=== PATIENT | female | born 1960 | race Caucasian/White ===

== ENCOUNTER → 2016-12-24 | Outpatient (CLI) | payer OTHER ==
--- NOTE | 2016-12-26 14:08 | MAMMOGRAPHY REPORT ---
BILATERAL DIGITAL SCREENING MAMMOGRAM TOMOSYNTHESIS WITH CAD: 12/24/2016 CLINICAL HISTORY: Routine screening examination. TECHNIQUE: Breast tomosynthesis in addition to standard 2D mammography was performed. Current study was also evaluated with a Computer Aided Detection (CAD) system. COMPARISON: Comparison is made to exams dated: 06/07/2014 mammogram, 12/31/2011 mammogram, 12/26/2009 m ammogram, 12/24/2014 mammogram - [facility], and 01/12/2008. BREAST COMPOSITION: The tissue of both breasts is heterogeneously dense, which may obscure small ma sses. FINDINGS: The parenchymal pattern is unchanged. No developing mass, architectural distortion or clu ster of suspicious microcalcifications is seen in either breast. IMPRESSION: ACR BI-RADS CATEGORY 2: BENIGN There is no mammographic evidence of malignancy. A 1 year screening mammogram is recommended. The p atient will receive written notification of the results. Approximately 10% of breast cancers are not detected with mammography. A negative mammographic repor t should not delay biopsy if a clinically suggestive mass is present. Fatmata Chakraborty M.D. ay/:12/25/2016 21:39:45 Gantry Rigger: Yoko TAN(Daniel)(Freddy), [facility] letter sent: Normal 1/2 BI-RADS Code: ACR BI-RADS Category 2: Benign
== END | disposition home or self-care (01) ==
LOC: C.MAMM 09:35
PROVIDERS: ATTEND Internal Medicine Geriatric Medicine
DX: Z12.31 Encounter for screening mammogram for malignant neoplasm of breast (principal)

== ENCOUNTER → 2018-02-05 | Outpatient (CLI) | payer OTHER ==
--- NOTE | 2018-02-06 08:04 | MAMMOGRAPHY REPORT ---
BILATERAL DIGITAL SCREENING MAMMOGRAM TOMOSYNTHESIS WITH CAD: 02/05/2018 CLINICAL HISTORY: Routine screening. Patient has no complaints. TECHNIQUE: Breast tomosynthesis in addition to standard 2D mammography was performed. Current study was also evaluated with a Computer Aided Detection (CAD) system. COMPARISON: Comparison is made to exams dated: 12/24/2016 mammogram, 06/07/2014 mammogram, 12/31/2011 ma mmogram, 12/26/2009 mammogram - [facility], 01/12/2008, and 01/20/2006 mammogram - [facility]. BREAST COMPOSITION: The tissue of both breasts is heterogeneously dense, which may obscure small mas ses. FINDINGS: No suspicious masses, calcifications, or areas of architectural distortion are noted in ei ther breast. There has been no significant interval change compared to prior exams. Scattered bilate ral benign-appearing calcifications are not significantly changed. Asymmetry in the left inferior br east is stable compared to multiple prior exams. IMPRESSION: ACR BI-RADS CATEGORY 2: BENIGN There is no mammographic evidence of malignancy. A 1 year screening mammogram is recommended. The pa tient will receive written notification of the results. Approximately 10% of breast cancers are not detected with mammography. A negative mammographic report should not delay biopsy if a clinically suggestive mass is present. Sonia Pate M.D. ah/:02/05/2018 14:49:07 Field Marketing Specialist: Yoko LOVE)(Freddy), [facility] letter sent: Normal 1/2 BI-RADS Code: ACR BI-RADS Category 2: Benign
== END | disposition home or self-care (01) ==
LOC: C.MAMM 14:13
PROVIDERS: ATTEND Physician Assistant Medical
DX: Z12.31 Encounter for screening mammogram for malignant neoplasm of breast (principal)

== ENCOUNTER 2020-08-29 18:08 | Inpatient (IN) ==
[2020-08-29] MEDS ORDERED: ONDANSETRON INJ 2 MG/ML 2 ML VIAL IV STA (19:03)
[2020-08-29] MEDS ORDERED: SODIUM CHLORIDE 0.9% 1000ML 2,000 ML IV SCH (19:15)
[2020-08-29] MEDS ORDERED: INSULIN PROTOCOL GOAL RANGE ONE (19:36)
[2020-08-29] MEDS ORDERED: CALCIUM GLUCONATE 10% 1,000 MG in SODIUM CHLORIDE 0.9% 50 ML IV STA (19:37)
--- NOTE | 2020-08-29 19:37 | XRay Report ---
XR chest 1V portable CLINICAL HISTORY: weakness COMPARISON STUDY: No previous studies for comparison. FINDINGS: The cardiac and mediastinal contours are normal. There is no evidence of focal pulmonary co nsolidation. There is no evidence of failure. No pleural effusions are visualized.[ IMPRESSION: No active disease in the chest. ACT 112: Negative or not required by law. Electronically signed by: Crow Szymanski M.D. 08/29/2020 7:36 PM
[2020-08-29] MEDS ORDERED: NovoLIN-R INSULIN PER UNIT CHARGE IV STA (19:38)
[2020-08-29 19:42] LABS: Base Excess ABG -24.9 mEq/L (-9-1.8); HCO3 ABG 3 mmol/L (19-24); Oxygen Saturation ABG 98.4 % (90-95); PCO2 ABG 13 mmHg (35-46); PO2 ABG 140 mmHg (80-95)
[2020-08-29 19:44] LABS: iSTAT Blood Urea Nitrogen 37 mg/dl (7-18); iSTAT Carbon Dioxide < 5 mmol/L (24-31); iSTAT Chloride 92 mmol/L (101-112); iSTAT Creatinine 1.5 mg/dl (0.6-1.3); iSTAT Glucose > 700 mg/dl (70-99); iSTAT Hematocrit 41 % (37-47); iSTAT Hemoglobin 13.9 g/dl (12.0-16.0); iSTAT Ionized Calcium 1.21 mmol/l (1.12-1.32); iSTAT Potassium 6.6 mmol/L (3.3-5.0); iSTAT Sodium 116 mmol/L (135-144)
[2020-08-29 19:48] LABS: Allen Test Pos (Pos)
[2020-08-29 19:49] LABS: pH ABG 7.06 (7.35-7.45)
[2020-08-29] MEDS ORDERED: CARBOHYDRATES FOR HYPOGLYCEMIA PO PRN (19:50)
[2020-08-29] MEDS ORDERED: GLUCOSE 40% GEL 15 GM TUBE PO PRN (19:50)
[2020-08-29] MEDS ORDERED: DEXTROSE 50% 50 ML SYRINGE IV PRN (19:50)
[2020-08-29] MEDS ORDERED: GLUCOSE 10 TABS/TUBE PO PRN (19:50)
[2020-08-29] MEDS ORDERED: ED DKA INSULIN DRIP ONE (19:50)
[2020-08-29] MEDS ORDERED: GLUCAGON FOR INJ 1 MG VIAL SQ PRN (19:50)
[2020-08-29] MEDS ORDERED: SODIUM CHLORIDE 0.9% 1000ML 1,000 ML IV ONE (19:53)
[2020-08-29 19:55] LABS: Alanine Aminotransferase 32 U/L (12-78); Albumin Globulin Ratio 0.9 (0.9-2); Albumin Level 3.9 gm/dl (3.4-5.0); Aspartate Aminotransferase 24 U/L (15-37); BUN Creatinine Ratio 18.6 (10-20); Bilirubin,Total 0.6 mg/dl (0.2-1); Blood Urea Nitrogen 44 mg/dl (7-18); Calcium 9.2 mg/dl (8.5-10.1); Carbon Dioxide 5 mmol/L (21-32); Chloride 75 mmol/L (98-107); Est GFR (African American) 25.2; Est GFR (Non-African American) 21.7; Globulin 4.2 gm/dl (2.5-4.0); Glucose 1018 mg/dl (70-99); Magnesium 2.4 mg/dl (1.8-2.4); Potassium 6.8 mmol/L (3.5-5.1); Sodium 113 mmol/L (136-145); Total Protein 8.1 gm/dl (6.4-8.2)
[2020-08-29 19:58] LABS: Alkaline Phosphatase 106 U/L (45-117); Hematocrit (blood only) 46.8 % (37-47); Hemoglobin 14.6 g/dL (12.0-16.0); Mean Corpuscular Hemoglobin 31.3 pg (25-34); Mean Corpuscular Hgb Conc 31.2 g/dL (32-36); Mean Platelet Volume 10.6 fL (7.4-10.4); Platelet Count 461 K/uL (130-400); RDW Coefficient of Variation 12.8 % (11.5-14.5); RDW Standard Deviation 46.3 fL (36.4-46.3); Red Blood Count 4.66 M/uL (4.2-5.4); White Blood Count 36.81 K/uL (4.8-10.8)
[2020-08-29 20:01] LABS: ALC (manual) 0.88 K/uL (1.2-3.4); ANC (manual) 31.47 K/uL (1.4-6.5); Lymphocytes # (manual) 0.88 K/uL (1.2-3.4); Lymphocytes % (manual) 2.4 %; Metamyelocytes # (manual) 0.59 K/uL (0-0); Metamyelocytes % (manual) 1.6 %; Monocytes # (manual) 3.28 K/uL (0.11-0.59); Monocytes % (manual) 8.9 %; Myelocytes # (manual) 0.59 K/uL (0-0); Myelocytes % (manual) 1.6 %; Neutrophils # (manual) 31.47 K/uL (1.4-6.5); Neutrophils % (manual) 85.5 %
[2020-08-29] MEDS ORDERED: STAT IV STA (20:17)
[2020-08-29] MEDS ORDERED: SODIUM BICARBONATE 8.4% 150 MEQ in WATER, STERILE 1,000 ML IV SCH (20:30)
[2020-08-29 20:37] LABS: Beta-Hydroxybutyrate 155.58 mg/dl (0.2-2.81)
--- NOTE | 2020-08-29 20:40 | History & Physical Report ---
Date of Service August 29, 2020 Assessment & Plan (1) Admitted to intensive care unit: Patient is admitted to intensive care unit for treatment of DKA. Consult hog driver team placed. Present on Admission?: Yes (2) DKA (diabetic ketoacidoses): Continue with IV fluid rehydration. Continue insulin drip and bicarbonate drip per orders as noted. Follow laboratory serially. Present on Admission?: Yes (3) Hypothyroidism: Continue levothyroxine 125 mcg daily Present on Admission?: Yes (4) Acute kidney injury: Creatinine 2.34, with previous range 0.94-1.17. Rehydrating with IV fluids as noted. Follow BMP serially Present on Admission?: Yes (5) Metabolic acidosis: Treating DKA as noted above Present on Admission?: Yes (6) Hyperkalemia: Potassium 6.8 upon admission. Anticipate decreasing as patient has treatment of hyperglycemia with IV fluid hydration and insulin. Follow BMP serially. Patient did receive calcium gluconate IV while in the ED for cardioprotection Present on Admission?: Yes (7) Rhabdomyolysis: CK 874 upon admission. Follow serially. Present on Admission?: Yes (8) Acute alteration in mental status: Secondary to DKA. No identifying underlying infectious process noted. Significant neutrophilic leukocytosis. We will treat empirically with antibiotics vancomycin IV Zosyn IV and azithromycin IV. Present on Admission?: Yes (9) COVID-19 virus antibody negative: COVID-19 antibody testing negative in the ED prior to admission Present on Admission?: Yes History of Present Illness Chief Complaint: The patient presents to the emergency department with her , who reports that the patient has not gotten out of bed for the past 24 hours due to generalized weakness, and as the day progressed, has become more confused and disoriented. Primary Care Provider: Danny Wolfe DO The patient is a 60-year-old female with a past medical history including hypothyroidism, hyperglycemia, and anxiety. Her acts as the primary source of HPI and review of systems, as the patient is herself somewhat disoriented and confused. The reports that patient has had 2 to 3 days of decreased oral intake due to indigestion, and today began to have occasional vomiting. He reports that she has also become more thirsty, and has been drinking large volumes of water, but still has not been urinating frequently. He does report that they have eaten out recently, but has no direct awareness of COVID-19 exposures or other exposures to illness. In the emergency department, COVID-19 testing was negative. WBC was 36.81 with left shift, platelets 461. Sodium was 113, potassium 6.8, bicarb 5, creatinine 2.34 and glucose 1018. ABG showed a pH of 7.06, PCO2 13, PO2 140, and O2 saturation 98.4 on 2 L nasal cannula O2. The patient was given 3 L of normal saline in the emergency department, and was started on an insulin drip and bicarbonate drip. She was then transferred to the ICU for admission. Allergies Allergy/AdvReac Type Severity Reaction Status Date / Time No Known Allergies Allergy Verified 08/29/20 20:07 Home Medications Home Medications Medication Instructions Recorded Confirmed Type acyclovir 400 mg tablet 400 mg PO DAILY PRN 12/09/19 08/29/20 History citalopram 20 mg tablet 20 mg PO DAILY PRN tab 12/10/19 08/29/20 History levothyroxine 125 mcg tablet 125 mcg PO DAILY #90 tab 05/03/20 08/29/20 Rx Past Med/Surg History Medical History Hypercalcemia Surgical History History of section History of thyroid surgery 1979 Family History Mother Osteoporosis Cerebral aneurysm Social History Smoking Status: Former smoker Age Started Using Tobacco: 15; Age Quit Using Tobacco: 25; packs per day: 0.5; Cigarettes Per Day: 10; Second Hand Exposure: No; Hx Alcohol Use: Yes Alcohol type: beer and wine Alcohol Intake Frequency Comment: 4 glasses Hx Substance Use: No Preferred Language: Icelandic Communication Ability: Effective Visual Impairment: No Limitations Hearing Ability: Normal Fish Egg Packer Required: No Beliefs That Will Affect Care: None marital status: Current Living Situation: Spouse current occupational status: retired Other Information That Helps Us Care for You: No Feels Safe at Home: Yes Safety Concerns: Feels Safe At This Time Childhood Exposure to Second-Hand Smoke: Yes caffeine: Yes Dental Care, Regularly: Yes Physical Activity Frequency: Daily Seatbelt Use: always Sunscreen Use: Yes Assistive Devices: None Review of Systems Review of Systems: Unobtainable due to cognitive status Her as noted, served at the primary source of HPI and review of systems Physical Exam Physical Exam: The patient is arousable, lethargic, normocephalic and atraumatic, lying in bed and in no acute distress. HEENT--PERRL, mucous membranes and oropharynx very dry. Neck--supple. No JVD. No bruits. Thyroid normal, trachea midline, no adenopathy. Heart--normal S1 and S2. No murmurs, rubs or gallops. Lungs--clear bilaterally, no respiratory distress, no accessory muscle use. Abdomen--normal bowel sounds and soft. Nontender. Nondistended, no hernias or masses, no organomegaly. Extremities--no cyanosis or clubbing. No edema. Dermatologic--normal skin turgor, normal color, no abnormal lymph nodes, no rash. Neurologic--cranial nerves II through XII grossly intact. Rheumatologic--limited exam Psychiatric--lethargic. Results & Data Results & Data ([facility]) Vital Signs (Past 12 Hours) Vital Signs Pulse Pulse Resp BP BP Pulse Ox 08/29/20 19:34 84 24 111/72 100 08/29/20 19:01 166 H 25 H 84/66 L 100 08/29/20 19:00 167 H 26 H 98/59 L 91 08/29/20 18:45 171 H 25 H 100 08/29/20 18:42 174 H 21 100 08/29/20 18:40 174 H 19 105/63 100 08/29/20 18:30 87 18 172/118 H 100 Laboratory Results Laboratory Results WBC 36.81 K/uL (4.8-10.8) H* 08/29/20 19:05 RBC 4.66 M/uL (4.2-5.4) 08/29/20 19:05 Hgb 14.6 g/dL (12.0-16.0) 08/29/20 19:05 POC Hgb 13.9 g/dl (12.0-16.0) 08/29/20 19:31 Hct 46.8 % (37-47) 08/29/20 19:05 POC Hct 41 % (37-47) 08/29/20 19:31 MCV 100.4 fL (80-100) H 08/29/20 19:05 MCH 31.3 pg (25-34) 08/29/20 19:05 MCHC 31.2 g/dL (32-36) L 08/29/20 19:05 RDW Std Deviation 46.3 fL (36.4-46.3) 08/29/20 19:05 RDW Coeff of Quinten 12.8 % (11.5-14.5) 08/29/20 19:05 Plt Count 461 K/uL (130-400) H 08/29/20 19:05 MPV 10.6 fL (7.4-10.4) H 08/29/20 19:05 Neutrophils % (Manual) 85.5 % 08/29/20 19:05 Lymphocytes % (Manual) 2.4 % 08/29/20 19:05 Monocytes % (Manual) 8.9 % 08/29/20 19:05 Metamyelocytes % (Man) 1.6 % 08/29/20 19:05 Myelocytes % (Man) 1.6 % 08/29/20 19:05 Neutrophils # (Manual) 31.47 K/uL (1.4-6.5) H 08/29/20 19:05 Total Absolute Neuts 31.47 K/uL (1.4-6.5) H 08/29/20 19:05 Lymphocytes # (Manual) 0.88 K/uL (1.2-3.4) L 08/29/20 19:05 Total Abs Lymphocytes 0.88 K/uL (1.2-3.4) L 08/29/20 19:05 Monocytes # (Manual) 3.28 K/uL (0.11-0.59) H 08/29/20 19:05 Metamyelocytes # (Man) 0.59 K/uL (0-0) H 08/29/20 19:05 Myelocytes # (Manual) 0.59 K/uL (0-0) H 08/29/20 19:05 PT 11.4 Seconds (9.0-12.0) 08/30/20 03:52 INR 1.1 (0.9-1.1) 08/30/20 03:52 ABG pH 7.06 (7.35-7.45) L* 08/29/20 19:21 ABG pCO2 13 mmHg (35-46) L 08/29/20 19:21 ABG pO2 140 mmHg (80-95) H 08/29/20 19:21 ABG HCO3 3 mmol/L (19-24) L 08/29/20 19:21 ABG O2 Saturation 98.4 % (90-95) H 08/29/20 19:21 ABG Base Excess -24.9 mEq/L (-9-1.8) L 08/29/20 19:21 Andreas Test Pos (Pos) 08/29/20 19:21 VBG pH 7.22 (7.36-7.41) L 08/30/20 00:07 VBG pCO2 28 mmHg (38-50) L 08/30/20 00:07 VBG pO2 34 mmHg 08/30/20 00:07 VBG HCO3 11 mmol/L 08/30/20 00:07 VBG O2 Saturation 67.1 % 08/30/20 00:07 VBG Base Excess -14.8 mEq/L 08/30/20 00:07 Barometric Pressure 727.0 mm/Hg 08/30/20 00:07 Oxygen Given Room Air 08/29/20 19:21 POC Sodium 116 mmol/L (135-144) L* 08/29/20 19:31 Sodium 131 mmol/L (136-145) L 08/30/20 03:53 POC Potassium 6.6 mmol/L (3.3-5.0) H* 08/29/20 19:31 Potassium 4.5 mmol/L (3.5-5.1) 08/30/20 03:53 POC Chloride 92 mmol/L (101-112) L 08/29/20 19:31 Chloride 100 mmol/L (98-107) 08/30/20 03:53 Carbon Dioxide 18 mmol/L (21-32) L 08/30/20 03:53 POC Total CO2 < 5 mmol/L (24-31) L* 08/29/20 19:31 Anion Gap 13.0 (3-11) H 08/30/20 03:53 POC Anion Gap 26.0 mmol/L (16-25) H 08/29/20 19:31 POC BUN 37 mg/dl (7-18) H 08/29/20 19:31 BUN 32 mg/dl (7-18) H 08/30/20 03:53 Creatinine 1.18 mg/dl (0.6-1.2) 08/30/20 03:53 POC Creatinine 1.5 mg/dl (0.6-1.3) H 08/29/20 19:31 Est Cr Clr Drug Dosing 39.6 ml/min 08/30/20 03:53 Est GFR ( Amer) 57.6 08/30/20 03:53 Est GFR (Non-Af Amer) 49.7 08/30/20 03:53 BUN/Creatinine Ratio 27.5 (10-20) H 08/30/20 03:53 Glucose 217 mg/dl (70-99) H 08/30/20 03:53 POC Glucose 235 mg/dl (70-99) H 08/30/20 03:59 POC Glucose (other) > 700 mg/dl (70-99) H* 08/29/20 19:31 Lactate 1.9 mmol/L (0.4-2.0) 08/29/20 19:28 Calcium 8.1 mg/dl (8.5-10.1) L 08/30/20 03:53 POC Ioniz Calcium Turner 1.21 mmol/l (1.12-1.32) 08/29/20 19:31 Phosphorus 1.8 mg/dl (2.5-4.9) L D 08/29/20 23:48 Magnesium 1.8 mg/dl (1.8-2.4) 08/30/20 03:53 Total Bilirubin 0.6 mg/dl (0.2-1) 08/29/20 19:05 AST 24 U/L (15-37) 08/29/20 19:05 ALT 32 U/L (12-78) 08/29/20 19:05 Alkaline Phosphatase 106 U/L (45-117) 08/29/20 19:05 Total Creatine Kinase 874 U/L (26-192) H 08/29/20 21:20 Total Protein 8.1 gm/dl (6.4-8.2) 08/29/20 19:05 Albumin 3.9 gm/dl (3.4-5.0) 08/29/20 19:05 Globulin 4.2 gm/dl (2.5-4.0) H 08/29/20 19:05 Albumin/Globulin Ratio 0.9 (0.9-2) 08/29/20 19:05 Beta-Hydroxybutyric Acd 43.76 mg/dl (0.2-2.81) H 08/30/20 03:53 Procalcitonin 0.41 ng/ml (0-0.5) 08/29/20 23:48 TSH 2.610 uIu/ml (0.300-4.500) 08/29/20 19:05 Urine Color Yellow 08/29/20 21:07 Urine Appearance Clear (Clear) 08/29/20 21:07 Urine pH 5.0 (4.5-7.5) 08/29/20 21:07 Ur Specific Freeborn 1.022 (1.000-1.030) 08/29/20 21:07 Urine Protein 1+ (Negative) H 08/29/20 21:07 Urine Glucose (UA) 3+ (Negative) H 08/29/20 21:07 Urine Ketones 4+ (Negative) H 08/29/20 21:07 Urine Blood 3+ (Negative) H 08/29/20 21:07 Urine Nitrite Negative (Negative) 08/29/20 21:07 Urine Bilirubin Negative (Negative) 08/29/20 21:07 Urine Urobilinogen Negative (Negative) 08/29/20 21:07 Ur Leukocyte Esterase Negative (Negative) 08/29/20 21:07 Urine WBC (Auto) 1-5 /hpf (0-5) 08/29/20 21:07 Urine RBC (Auto) 0-4 /hpf (0-4) 08/29/20 21:07 U Hyaline Cast (Auto) 1-5 /lpf (0-5) 08/29/20 21:07 U Epithel Cells (Auto) 10-20 /lpf (0-5) H 08/29/20 21:07 Urine Bacteria (Auto) Negative (Negative) 08/29/20 21:07 Nasal Screen MRSA (PCR) Negative (Negative) 08/29/20 22:15 COVID-19 Eval Order Covid19 Done at [facility] 08/29/20 20:51 COVID-19 PCR NEGATIVE (Negative) 08/29/20 20:51 Hepatitis C Ab Screen Neg (Neg) 08/29/20 19:05 Diagnostic Findings [place], [place] [phone] XRay Report Patient: ALANNAH ORTEGA Date: 08/29/20 MR#: [id number]: [address] Acct ID:[id number]: Date: 1960City Zip: [place] [address] Age: 60Location: ED Sex: FRoom/Bed: Att Phy:Diagnosis: 24 HOURS HAVENT GOTTEN OUT OF BED WEAKNESS Cecile Phy: Danny Wolfe, DOService Date: 08/29/20 Fam Phy: Danny Wolfe, DOInterpreting Phy: Crow Szymanski MD Admit Phy: Ordering Phy: Elizabeth Rodriguez M.D. cc: ~ XR chest 1V portable CLINICAL HISTORY: weakness COMPARISON STUDY: No previous studies for comparison. FINDINGS: The cardiac and mediastinal contours are normal. There is no evidence of focal pulmonary consolidation. There is no evidence of failure. No pleural effusions are visualized.[ IMPRESSION: No active disease in the chest. ACT 112: Negative or not required by law. Electronically signed by: Crow Szymanski M.D. 08/29/2020 7:36 PM Dictated: 08/29/201935 Transcribed: 08/29/201935 Code Status & VTE Plan Code Status Full code VTE Prophylaxis Plan VTE Prophylaxis will be ordered: Yes Critical Care Time Critical Care Time: Yes Total Critical Care Time: 55 Total critical care time was 55 minutes PG Care Time/CCT Total # of Minutes Spent Total Time Spent with Patient: Total time spent is greater than 50% in coordination of care (as documented) at patient's floor/unit and/or counseling patient: Critical Care Time: Yes Total Critical Care Time: 55 Coding Level of Care Code 46133 Initial Inpt Care Lvl 3 Diagnoses Admitted to intensive care unit Z78.9 DKA (diabetic ketoacidoses) E10.10 Diabetes mellitus complication detail: without coma Diabetes mellitus type: type 1 Hypothyroidism E03.9 Acute kidney injury N17.9 Metabolic acidosis E87.2 Hyperkalemia E87.5 Rhabdomyolysis M62.82 Acute alteration in mental status R41.82 COVID-19 virus antibody negative Z78.9 Additional Codes Critical Care Time - Critical Care Time: Yes ([id number]) Time Spent (min) 55 (1) DKA (diabetic ketoacidoses) Diabetes mellitus complication detail: without coma Diabetes mellitus type: type 1 Qualified Code(s): E10.10 - Type 1 diabetes mellitus with ketoacidosis without coma
[2020-08-29] MEDS: INSULIN REGULAR 250 UNITS in SODIUM CHLORIDE 0.9% 247.5 ML IV SCH (20:49)
[2020-08-29] MEDS ORDERED: PIPERACILL/TAZOBAC CONSULT ACTIVE PRN (22:13)
[2020-08-29] MEDS ORDERED: VANCOMYCIN CONSULT ACTIVE PRN (22:13)
[2020-08-29] MEDS ORDERED: ALBUT/IPRATROP 3MG/0.5MG NEB 3 ML VIAL INH PRN (22:13)
[2020-08-29] MEDS ORDERED: ICU PROTOCOL FOR HYPERGLYCEMIA PRN (22:13)
[2020-08-29] MEDS ORDERED: PIPERACILLIN/TAZOBACTAM 4.5 GM in DEXTROSE 5% 100 ML IV ONE (22:13)
[2020-08-29 22:24] LABS: Appearance Urine Clear (Clear); Bacteria Urine Automated Negative (Negative); Bilirubin Urine Negative (Negative); Blood Urine 3+ (Negative); Color Urine Yellow; Glucose Urine UA 3+ (Negative); Ketones Urine 4+ (Negative); Leukocyte Esterase Urine Negative (Negative); Nitrite Urine Negative (Negative); Protein Urine 1+ (Negative); RBC Urine Automated 0-4 /hpf (0-4); Specific Gravity Urine 1.022 (1.000-1.030); Urobilinogen Urine Negative (Negative)
[2020-08-29 22:30] LABS: Phosphorus 7.9 mg/dl (2.5-4.9)
[2020-08-29] MEDS ORDERED: PATIENT'S HEIGHT AND/OR WEIGHT NEEDED SCH (22:30)
[2020-08-29] MEDS ORDERED: VANCOMYCIN HCL 1,250 MG in SODIUM CHLORIDE 0.9% 250 ML IV ONE (22:30)
[2020-08-29] MEDS ORDERED: INFLUENZA VIRUS QUAD VACCINE 0.5 ML SYR IM ONE (22:37)
[2020-08-29] MEDS ORDERED: INFLUENZA ADMINISTRATION CHARGE ONE (22:37)
[2020-08-29] MEDS ORDERED: PNEUMOCOCCAL ADMINISTRATION CHARGE ONE (22:37)
[2020-08-29] MEDS ORDERED: PNEUMOCOCCAL POLYSACCHARIDES 25 MCG/0.5 ML VIAL/SYR IM ONE (22:37)
[2020-08-29] MEDS: INSULIN ASPART 100 UNITS/ML 3 ML PEN SC SCH (22:46)
[2020-08-29] MEDS ORDERED: TRAZODONE HCL 50 MG TAB PO ONE (22:49)
[2020-08-29] MEDS: FAMOTIDINE 20 MG in SYRINGE 3 ML IV SCH (22:51)
--- NOTE | 2020-08-29 22:51 | Critical Care Consultation ---
Date of Consultation August 29, 2020 Assessment & Plan (1) DKA (diabetic ketoacidoses): Reason Critically Ill: 60-year-old female presents to the ICU in severe DKA with new onset type 1 diabetes Neuro - [facility] ICU: Negative Cardiac - Currently hemodynamically stable, normotensive and normal sinus rhythm Respiratory - Currently maintaining oxygen saturation on 2 L nasal cannula Patient was complaining of shortness of breath which is compensatory to metabolic acidosis, she has not presented with hypoxia We will wean oxygen as tolerated and continue to monitor on pulse ox GI - N.p.o. except for ice chips for now RENAL/LYTES - Electrolyte abnormalitiesimproving with IV fluid resuscitation and insulin infusion -Initially presented with hyperkalemia now improving, may add potassium to fluids once potassium levels below 5.3 -Follow DKA electrolyte protocols Metabolic acidosisstarted on bicarb drip in the emergency department, will discontinue once bicarb shows improvement as initial pH was 7.01 -Lactate within normal limits -Expect to improve with volume resuscitation and correction of hyperglycemia - Foleystrict I's and O's ENDO - DKAinitial blood glucose greater than 1000 with severe electrolyte abnormalities, BHA 155, urine positive for ketones and glucose -Continue IV fluid resuscitation per DKA protocol -Continue IV insulin infusion and will transition to sliding scale once anion gap and bicarb NORMALIZE -Trending BMPs and VBG's every 4 hours, improving New onset DM type Iunsure of etiology at this time, patient did have A1c of 5.7 in December -May be secondary to viral infection versus autoimmune? -We will need consult for endocrinology and diabetes education once stable Graves' disease/history of hypothyroid/history of thyroidectomyTSH within normal limits -We will continue home dose Synthroid HEME - H&H stable, monitor routine CBCs ID - Patient does present with significant leukocytosis, likely reactionary however cannot rule out infectious process at this time -Started on broad-spectrum antibiotics in the emergency department vancomycin, Zosyn, azithromycin -Nasal MRSA pending -Lactate negative, pro Farhad pending -will likely de-escalate to Zosyn as LINES/IV ACCESS - Peripheral IVs DVT PROPHYLAXIS - SCDs I have personally spent 40 minutes of critical care time in the direct management of this patient. This is a life/limb threatening event. This includes time spent evaluating patient, direct bedside care, chart review, placing orders, interpretation of diagnostic studies, discussion with consultants, patient, and family members, as well as other required patient management activities. This time is exclusive of all separately billable procedures, and teaching time and separate from and in addition to any other critical care service time. Thank you for allowing us to participate in the care of this patient. Please refer to my attending physician's documentation for any further recommendations. (2) Diabetes mellitus type 1: (3) Graves disease: (4) Hypothyroidism: (5) Hyperglycemia: (6) Metabolic acidosis: (7) Electrolyte abnormality: History of Present Illness Attending Physician: Floyd Bravo MD History of Present Illness Patient is a 60-year-old female with PMH of Graves' disease and thyroidectomy at age 18, hyperglycemia. Who presents to the emergency department with complaints of ongoing malaise and fatigue for the past 2 days. Recently started developing shortness of breath and increased thirst this afternoon. She was found to have blood glucose greater than 1000, severe electrolyte abnormalities, and presentation of DKA. She does not have history of diabetes and had a hemoglobin A1c of 5.7 in December 2019. DKA protocol initiated and she was transfused with 3 L normal saline, started on bicarb drip, broad-spectrum antibiotics, and insulin drip. BHA of 150 and bicarb less than 5. Repeat BMP shows some improvement. Patient transferred to ICU for further management at this time. On arrival to the ICU patient is alert and oriented and continues to have complaints of shortness of breath, fatigue, and increased thirst. She denies headache or syncope, dizziness, recent illness or fevers, sore throat, chest pain, palpitations, abdominal pain, nausea or vomiting, or diarrhea. Allergies Allergy/AdvReac Type Severity Reaction Status Date / Time No Known Allergies Allergy Verified 08/29/20 20:07 Home Medications Home Medications Medication Instructions Recorded Confirmed Type acyclovir 400 mg tablet 400 mg PO DAILY PRN 12/09/19 08/29/20 History citalopram 20 mg tablet 20 mg PO DAILY PRN tab 12/10/19 08/29/20 History levothyroxine 125 mcg tablet 125 mcg PO DAILY #90 tab 05/03/20 08/29/20 Rx Patient History Medical History (Updated 08/29/20 @ 23:29 by ANCA Duran) Hypercalcemia Surgical History History of section History of thyroid surgery 1979 Family History (Updated 12/10/19 @ 16:20 by Ángela Taylor PA-C) Mother Osteoporosis Cerebral aneurysm Social History (Updated 12/10/19 @ 12:58 by Christen Contreras) Smoking Status: Former smoker Age Started Using Tobacco: 15; Age Quit Using Tobacco: 25; packs per day: 0.5; Cigarettes Per Day: 10; Second Hand Exposure: No; Hx Alcohol Use: Yes Alcohol type: beer and wine Alcohol Intake Frequency Comment: 4 glasses Hx Substance Use: No Preferred Language: Mohawk Communication Ability: Effective Visual Impairment: No Limitations Hearing Ability: Normal Rag Sorter Required: No Beliefs That Will Affect Care: None marital status: Current Living Situation: Spouse current occupational status: retired Other Information That Helps Us Care for You: No Feels Safe at Home: Yes Safety Concerns: Feels Safe At This Time Childhood Exposure to Second-Hand Smoke: Yes caffeine: Yes Dental Care, Regularly: Yes Physical Activity Frequency: Daily Seatbelt Use: always Sunscreen Use: Yes Assistive Devices: None Review of Systems Review of Systems: All systems reviewed & are unremarkable except as noted in HPI & below Physical Exam Constitutional: cooperative and + lethargic Eyes: PERRL, conjunctivae normal, anicteric sclerae ENMT: external ear and nose normal, oropharynx normal Neck: trachea midline, no thyromegaly Respiratory: normal respiratory effort, lungs clear to auscultation + tachypneic; no labored breathing and no cough Auscultation: no crackles and no wheezes Cardiovascular: RRR, no murmur, no edema Heart Sounds: normal S1 and normal S2 Vessels: no JVD Extremities: normal capillary refill; no edema Gastrointestinal (Abdomen): normal bowel sounds, soft, nontender, no hepatosplenomegaly Musculoskeletal: no cyanosis or clubbing, extremities motor strength 5/5 Skin: no rashes, warm and dry Neurologic: PERRL, EOMI, accommodation nl, no face palsy, no dysarthria Psychiatric: A+Ox3, euthymic affect Genitourinary: Indwelling [place] catheter present Results & Data Results & Data ([facility]) Vital Signs (Past 12 Hours) Vital Signs Temp Pulse Pulse Resp BP BP Pulse Ox 08/29/20 22:43 97 H 08/29/20 22:30 96 H 26 H 100 08/29/20 22:16 36.6 C 95 H 26 H 102/73 99 08/29/20 22:12 97 H 29 H 102/73 98 08/29/20 22:10 98 H 19 08/29/20 20:45 88 25 H 123/75 08/29/20 20:31 89 25 H 100 08/29/20 20:30 91 H 24 125/90 100 08/29/20 20:16 92 H 24 100 08/29/20 20:15 91 H 23 114/71 100 08/29/20 20:01 90 26 H 108/64 100 08/29/20 20:00 89 26 H 99 08/29/20 19:46 85 24 104/68 100 08/29/20 19:45 85 22 100 08/29/20 19:34 84 24 111/72 100 08/29/20 19:31 96 H 24 100 08/29/20 19:30 158 H 27 H 111/72 100 08/29/20 19:21 128 H 24 105/65 08/29/20 19:15 169 H 26 H 08/29/20 19:01 166 H 25 H 84/66 L 100 08/29/20 19:00 167 H 26 H 98/59 L 91 08/29/20 18:45 171 H 25 H 100 08/29/20 18:42 174 H 21 100 08/29/20 18:40 174 H 19 105/63 100 08/29/20 18:30 87 18 172/118 H 100 Coding Level of Care Code Critical Care 1st 30-74 mins Diagnoses DKA (diabetic ketoacidoses) E11.10 Diabetes mellitus type 1 E10.9 Graves disease E05.00 Hypothyroidism E03.9 Hyperglycemia R73.9 Metabolic acidosis E87.2 Electrolyte abnormality E87.8
[2020-08-29 22:57] LABS: Calcium 8.3 mg/dl (8.5-10.1); Est GFR (African American) 37.9; Est GFR (Non-African American) 32.7; Potassium 5.9 mmol/L (3.5-5.1)
[2020-08-29 23:08] LABS: BUN Creatinine Ratio 22.2 (10-20)
--- NOTE | 2020-08-30 00:12 | Emergency Department Note ---
History of Present Illness General Chief complaint: Weakness Stated complaint: 24 HOURS HAVENT GOTTEN OUT OF BED WEAKNESS Time Seen by Provider: 08/29/20 18:57 Source: family and RN notes reviewed Mode of arrival: ambulatory Limitations: altered mental status and clinical acuity History of Present Illness Provider complaint: Altered mental status, increased work of breathing, complains of indigestion This patient is a 60-year-old female who presents emergency department with her who states that she has been altered for most of the day. Over the last 2 to 3 days the patient has been complaining of indigestion, increased thirst and occasional vomiting. He states the patient has been drinking large qu antities of water and he does not believe she has been urinating as frequently. She does have a history of thyroid problems and takes a supplement. He does not know of any other medical problems. He denies any fevers or known COVID exposures. The patient did not complain of any specific pain. History is significantly limited due to the patient's inability to answer questions because of clinical acuity. Home Medications Home Medications Medication Instructions Recorded Confirmed Type acyclovir 400 mg tablet 400 mg PO DAILY PRN 12/09/19 08/29/20 History citalopram 20 mg tablet 20 mg PO DAILY PRN tab 12/10/19 08/29/20 History levothyroxine 125 mcg tablet 125 mcg PO DAILY #90 tab 05/03/20 08/29/20 Rx Allergies Allergy/AdvReac Type Severity Reaction Status Date / Time No Known Allergies Allergy Verified 08/29/20 20:07 Past Med/Surg History Medical History Hypercalcemia Surgical History History of section History of thyroid surgery 1979 Family History Mother Osteoporosis Cerebral aneurysm Social History Smoking Status: Former smoker Age Started Using Tobacco: 15; Age Quit Using Tobacco: 25; packs per day: 0.5; Cigarettes Per Day: 10; Second Hand Exposure: No; Hx Alcohol Use: Yes Alcohol type: beer and wine Alcohol Intake Frequency Comment: 4 glasses Hx Substance Use: No Preferred Language: Bulgarian Communication Ability: Effective Visual Impairment: No Limitations Hearing Ability: Normal Gaming Cage Cashier Required: No Beliefs That Will Affect Care: None marital status: Current Living Situation: Spouse current occupational status: retired Other Information That Helps Us Care for You: No Feels Safe at Home: Yes Safety Concerns: Feels Safe At This Time Childhood Exposure to Second-Hand Smoke: Yes caffeine: Yes Dental Care, Regularly: Yes Physical Activity Frequency: Daily Seatbelt Use: always Sunscreen Use: Yes Assistive Devices: None Review of Systems Unobtainable due to reduced consciousness Physical Exam Vital Signs Vital Signs - 24 hr 08/29/20 18:30 08/29/20 18:40 08/29/20 18:42 Temperature Source Oral Pulse Rate 87 174 H 174 H Pulse Rate [Right Finger] Pulse Rate from SpO2 Sensor 87 86 Pulse Rhythm Regular Pulse Strength Normal Respiratory Rate 18 19 21 Respiratory Effort / Characteristics Non-Labored Spontaneous Respiratory Depth Normal Respiratory Pattern Regular Blood Pressure 172/118 H 105/63 Blood Pressure [Right Arm] Blood Pressure Mean 136 71 Blood Pressure Mean [Right Arm] Blood Pressure Position Sitting Pulse Oximetry 100 100 100 Oxygen Delivery Method Room Air Oxygen Flow Rate Sepsis Recent Fever Within 48 Hours No Sepsis New/Unexplained Change in Mental Status N/A Sepsis Action Taken by Nursing No Action Required 08/29/20 18:45 08/29/20 19:00 08/29/20 19:01 Temperature Source Pulse Rate 171 H 167 H 166 H Pulse Rate [Right Finger] Pulse Rate from SpO2 Sensor 86 89 83 Pulse Rhythm Pulse Strength Respiratory Rate 25 H 26 H 25 H Respiratory Effort / Characteristics Respiratory Depth Respiratory Pattern Blood Pressure 98/59 L 84/66 L Blood Pressure [Right Arm] Blood Pressure Mean 78 72 Blood Pressure Mean [Right Arm] Blood Pressure Position Pulse Oximetry 100 91 100 Oxygen Delivery Method Oxygen Flow Rate Sepsis Recent Fever Within 48 Hours Sepsis New/Unexplained Change in Mental Status Sepsis Action Taken by Nursing 08/29/20 19:15 08/29/20 19:21 08/29/20 19:30 Temperature Source Pulse Rate 169 H 128 H 158 H Pulse Rate [Right Finger] Pulse Rate from SpO2 Sensor 87 Pulse Rhythm Pulse Strength Respiratory Rate 26 H 24 27 H Respiratory Effort / Characteristics Respiratory Depth Respiratory Pattern Blood Pressure 105/65 111/72 Blood Pressure [Right Arm] Blood Pressure Mean 69 84 Blood Pressure Mean [Right Arm] Blood Pressure Position Pulse Oximetry 100 Oxygen Delivery Method Oxygen Flow Rate Sepsis Recent Fever Within 48 Hours Sepsis New/Unexplained Change in Mental Status Sepsis Action Taken by Nursing 08/29/20 19:31 08/29/20 19:34 08/29/20 19:45 Temperature Source Pulse Rate 96 H 85 Pulse Rate [Right Finger] 84 Pulse Rate from SpO2 Sensor 87 86 Pulse Rhythm Pulse Strength Respiratory Rate 24 24 22 Respiratory Effort / Characteristics Respiratory Depth Respiratory Pattern Blood Pressure Blood Pressure [Right Arm] 111/72 Blood Pressure Mean Blood Pressure Mean [Right Arm] 85 Blood Pressure Position Pulse Oximetry 100 100 100 Oxygen Delivery Method Nasal Cannula Oxygen Flow Rate 2 Sepsis Recent Fever Within 48 Hours Sepsis New/Unexplained Change in Mental Status Sepsis Action Taken by Nursing 08/29/20 19:46 08/29/20 20:00 08/29/20 20:01 Temperature Source Pulse Rate 85 89 90 Pulse Rate [Right Finger] Pulse Rate from SpO2 Sensor 86 93 H 90 Pulse Rhythm Pulse Strength Respiratory Rate 24 26 H 26 H Respiratory Effort / Characteristics Respiratory Depth Respiratory Pattern Blood Pressure 104/68 108/64 Blood Pressure [Right Arm] Blood Pressure Mean 78 87 Blood Pressure Mean [Right Arm] Blood Pressure Position Pulse Oximetry 100 99 100 Oxygen Delivery Method Oxygen Flow Rate Sepsis Recent Fever Within 48 Hours Sepsis New/Unexplained Change in Mental Status Sepsis Action Taken by Nursing 08/29/20 20:15 08/29/20 20:16 08/29/20 20:30 Temperature Source Pulse Rate 91 H 92 H 91 H Pulse Rate [Right Finger] Pulse Rate from SpO2 Sensor 92 H 92 H 93 H Pulse Rhythm Pulse Strength Respiratory Rate 23 24 24 Respiratory Effort / Characteristics Respiratory Depth Respiratory Pattern Blood Pressure 114/71 125/90 Blood Pressure [Right Arm] Blood Pressure Mean 84 105 Blood Pressure Mean [Right Arm] Blood Pressure Position Pulse Oximetry 100 100 100 Oxygen Delivery Method Oxygen Flow Rate Sepsis Recent Fever Within 48 Hours Sepsis New/Unexplained Change in Mental Status Sepsis Action Taken by Nursing 08/29/20 20:31 Temperature Source Pulse Rate 89 Pulse Rate [Right Finger] Pulse Rate from SpO2 Sensor 89 Pulse Rhythm Pulse Strength Respiratory Rate 25 H Respiratory Effort / Characteristics Respiratory Depth Respiratory Pattern Blood Pressure Blood Pressure [Right Arm] Blood Pressure Mean Blood Pressure Mean [Right Arm] Blood Pressure Position Pulse Oximetry 100 Oxygen Delivery Method Oxygen Flow Rate Sepsis Recent Fever Within 48 Hours Sepsis New/Unexplained Change in Mental Status Sepsis Action Taken by Nursing Vital signs reviewed. General: Critically ill appearing 60-year-old female, tachypneic with Kussmaul breathing. HEENT: No scleral icterus, PERRLA, neck supple. Cardiovascular: Tachycardic no extra sounds. Pulmonary: Clear to auscultation bilaterally, increased work of breathing. Abdomen: Soft, nontender, nondistended, positive bowel sounds. Musculoskeletal: No peripheral edema, atraumatic Neurologic: Patient somnolent and difficult to direct but able to answer simple questions. Skin: Warm, dry, no rash Course Administered Medications Insulin Human Regular 250 (units/ Sodium Chloride) 250 mls @ 6.7 mls/hr IV .Q24H MARCOS; Protocol Stop: 09/28/20 19:44 Last Titration: 08/29/20 23:58 Dose: 9.6 unit/hr, 9.6 mls/hr Documented by: [id number] Cosigned by: [id number] Titration: 08/29/20 23:45 Dose: 8 unit/hr, 8 mls/hr Documented by: [id number] Cosigned by: [id number] Titration: 08/29/20 23:00 Dose: 8 unit/hr, 8 mls/hr Documented by: [id number] Cosigned by: [id number] Titration: 08/29/20 22:24 Dose: 6.7 unit/hr, 6.7 mls/hr Documented by: [id number] Cosigned by: [id number] Admin: 08/29/20 20:49 Dose: 5.6 unit/hr, 5.6 mls/hr Documented by: [id number] Cosigned by: [id number] Sodium Bicarbonate 150 meq/ (Sterile Water) 1,150 mls @ 200 mls/hr IV .Q5H45M MARCOS Stop: 09/28/20 20:29 Last Admin: 08/29/20 20:47 Dose: 200 mls/hr Documented by: [id number] Famotidine 20 mg/ Syringe 5 mls @ 2.5 mls/min IV Q12 MARCOS Stop: 09/28/20 22:12 Last Admin: 08/29/20 22:51 Dose: 2.5 mls/min Documented by: [id number] Vancomycin HCl 1,250 mg/ (Sodium Chloride) 275 mls @ 125 mls/hr IV ONE ONE; Protocol Stop: 08/30/20 00:41 Last Admin: 08/29/20 22:51 Dose: 125 mls/hr Documented by: [id number] Insulin Aspart (Insulin Aspart 100 Units/Ml 3 Ml Pen) 0 units SC ACHS MARCOS Stop: 09/28/20 20:59 Last Admin: 08/29/20 22:46 Dose: Not Given Documented by: [id number] Cosigned by: [id number] Discontinued Medications Sodium Chloride (Nss 1000ml) 2,000 mls @ 999 mls/hr IV .Q2H1M MARCOS Stop: 08/29/20 21:15 Last Infusion: 08/29/20 21:01 Dose: 0 mls/hr Documented by: [id number] Admin: 08/29/20 19:10 Dose: 999 mls/hr Documented by: [id number] Calcium Gluconate 1,000 mg/ (Sodium Chloride) 60 mls @ 240 mls/hr IV NOW STA Stop: 08/29/20 19:51 Last Infusion: 08/29/20 20:48 Dose: 0 mls/hr Documented by: [id number] Admin: 08/29/20 20:03 Dose: 240 mls/hr Documented by: [id number] Sodium Chloride (Nss 1000ml) 1,000 mls @ 999 mls/hr IV .Q1H1M ONE Stop: 08/29/20 20:53 Last Infusion: 08/29/20 20:48 Dose: 0 mls/hr Documented by: [id number] Admin: 08/29/20 19:54 Dose: 999 mls/hr Documented by: [id number] Piperacillin Sod/Tazobactam (Sod 4.5 gm/ Dextrose) 120 mls @ 240 mls/hr IV ONE ONE; Protocol Stop: 08/29/20 22:42 Last Infusion: 08/29/20 23:25 Dose: 0 mls/hr Documented by: [id number] Admin: 08/29/20 22:51 Dose: 240 mls/hr Documented by: [id number] Insulin Human Regular (Novolin-R Insulin Per Unit Charge) 5 units IV NOW STA Stop: 08/29/20 19:39 Last Admin: 08/29/20 19:44 Dose: 5 units Documented by: [id number] Cosigned by: [id number] Miscellaneous (Patient's Height And/Or Weight Needed) 1 ea N/A Q2H MARCOS Stop: 09/28/20 22:29 Last Admin: 08/29/20 23:09 Dose: Not Given Documented by: [id number] Ondansetron HCl (Ondansetron Inj 2 Mg/Ml 2 Ml Vial) 4 mg IV NOW STA Stop: 08/29/20 19:04 Last Admin: 08/29/20 19:21 Dose: 4 mg Documented by: [id number] Trazodone HCl (Trazodone Hcl 50 Mg Tab) 50 mg PO NOW ONE Stop: 08/29/20 22:50 Last Admin: 08/29/20 23:11 Dose: 50 mg Documented by: [id number] Critical Care Time Critical Care Time: Yes I have personally spent greater than 45 minutes of critical care time in the direct management of this patient. This includes bedside care, interpretation of diagnostic studies, and testing, discussion with consultants, patient, and family members, and other required patient management activities. This 45 minutes is in excess of all separately billable procedures. Medical Decision Making Differential Diagnosis Differential diagnosis: Etiologies such as sepsis, DKA, acidosis UTI, pneumonia, bacteremia, metabolic process, electrolyte abnormalities, cardiac sources, intracerebral event, intra- abdominal process, toxicological process, neurologic process, as well as others were entertained. Medical Records Attestation: I reviewed the patient's medical records. Home Medications Current Medication List: was personally reviewed by me Laboratory Data Attestation: I reviewed the patient's lab results. Result diagrams: 08/29/20 19:05 08/29/20 21:20 Lab Results 08/29/20 08/29/20 08/29/20 Range/Units 19:03 19:05 19:05 WBC 36.81 H* (4.8-10.8) K/uL RBC 4.66 (4.2-5.4) M/uL Hgb 14.6 (12.0-16.0) g/dL POC Hgb (12.0-16.0) g/dl Hct 46.8 (37-47) % POC Hct (37-47) % MCV 100.4 H (80-100) fL MCH 31.3 (25-34) pg MCHC 31.2 L (32-36) g/dL RDW Std Deviation 46.3 (36.4-46.3) fL RDW Coeff of Quinten 12.8 (11.5-14.5) % Plt Count 461 H (130-400) K/uL MPV 10.6 H (7.4-10.4) fL Neutrophils % (Manual) 85.5 % Lymphocytes % (Manual) 2.4 % Monocytes % (Manual) 8.9 % Metamyelocytes % (Man) 1.6 % Myelocytes % (Man) 1.6 % Neutrophils # (Manual) 31.47 H (1.4-6.5) K/uL Total Absolute Neuts 31.47 H (1.4-6.5) K/uL Lymphocytes # (Manual) 0.88 L (1.2-3.4) K/uL Total Abs Lymphocytes 0.88 L (1.2-3.4) K/uL Monocytes # (Manual) 3.28 H (0.11-0.59) K/uL Metamyelocytes # (Man) 0.59 H (0-0) K/uL Myelocytes # (Manual) 0.59 H (0-0) K/uL ABG pH (7.35-7.45) ABG pCO2 (35-46) mmHg ABG pO2 (80-95) mmHg ABG HCO3 (19-24) mmol/L ABG O2 Saturation (90-95) % ABG Base Excess (-9-1.8) mEq/L Andreas Test (Pos) Barometric Pressure mm/Hg Oxygen Given POC Sodium (135-144) mmol/L Sodium 113 L* (136-145) mmol/L POC Potassium (3.3-5.0) mmol/L Potassium 6.8 H* (3.5-5.1) mmol/L POC Chloride (101-112) mmol/L Chloride 75 L (98-107) mmol/L Carbon Dioxide 5 L* (21-32) mmol/L POC Total CO2 (24-31) mmol/L Anion Gap 34.0 H (3-11) POC Anion Gap (16-25) mmol/L POC BUN (7-18) mg/dl BUN 44 H (7-18) mg/dl Creatinine 2.34 H (0.6-1.2) mg/dl POC Creatinine (0.6-1.3) mg/dl Est Cr Clr Drug Dosing Not Reportable Est GFR ( Amer) 25.2 Est GFR (Non-Af Amer) 21.7 BUN/Creatinine Ratio 18.6 (10-20) Glucose 1018 H* (70-99) mg/dl POC Glucose > 600 H* (70-99) mg/dl POC Glucose (other) (70-99) mg/dl Lactate (0.4-2.0) mmol/L Calcium 9.2 (8.5-10.1) mg/dl POC Ioniz Calcium Turner (1.12-1.32) mmol/l Phosphorus 7.9 H (2.5-4.9) mg/dl Magnesium 2.4 (1.8-2.4) mg/dl Total Bilirubin 0.6 (0.2-1) mg/dl AST 24 (15-37) U/L ALT 32 (12-78) U/L Alkaline Phosphatase 106 (45-117) U/L Total Protein 8.1 (6.4-8.2) gm/dl Albumin 3.9 (3.4-5.0) gm/dl Globulin 4.2 H (2.5-4.0) gm/dl Albumin/Globulin Ratio 0.9 (0.9-2) Beta-Hydroxybutyric Acd 155.58 H (0.2-2.81) mg/dl TSH 2.610 (0.300-4.500) uIu/ml 08/29/20 08/29/20 08/29/20 Range/Units 19:13 19:21 19:28 WBC (4.8-10.8) K/uL RBC (4.2-5.4) M/uL Hgb (12.0-16.0) g/dL POC Hgb (12.0-16.0) g/dl Hct (37-47) % POC Hct (37-47) % MCV (80-100) fL MCH (25-34) pg MCHC (32-36) g/dL RDW Std Deviation (36.4-46.3) fL RDW Coeff of Quinten (11.5-14.5) % Plt Count (130-400) K/uL MPV (7.4-10.4) fL Neutrophils % (Manual) % Lymphocytes % (Manual) % Monocytes % (Manual) % Metamyelocytes % (Man) % Myelocytes % (Man) % Neutrophils # (Manual) (1.4-6.5) K/uL Total Absolute Neuts (1.4-6.5) K/uL Lymphocytes # (Manual) (1.2-3.4) K/uL Total Abs Lymphocytes (1.2-3.4) K/uL Monocytes # (Manual) (0.11-0.59) K/uL Metamyelocytes # (Man) (0-0) K/uL Myelocytes # (Manual) (0-0) K/uL ABG pH 7.06 L* (7.35-7.45) ABG pCO2 13 L (35-46) mmHg ABG pO2 140 H (80-95) mmHg ABG HCO3 3 L (19-24) mmol/L ABG O2 Saturation 98.4 H (90-95) % ABG Base Excess -24.9 L (-9-1.8) mEq/L Andreas Test Pos (Pos) Barometric Pressure 726.4 mm/Hg Oxygen Given Room Air POC Sodium (135-144) mmol/L Sodium (136-145) mmol/L POC Potassium (3.3-5.0) mmol/L Potassium (3.5-5.1) mmol/L POC Chloride (101-112) mmol/L Chloride (98-107) mmol/L Carbon Dioxide (21-32) mmol/L POC Total CO2 (24-31) mmol/L Anion Gap (3-11) POC Anion Gap (16-25) mmol/L POC BUN (7-18) mg/dl BUN (7-18) mg/dl Creatinine (0.6-1.2) mg/dl POC Creatinine (0.6-1.3) mg/dl Est Cr Clr Drug Dosing Est GFR ( Amer) Est GFR (Non-Af Amer) BUN/Creatinine Ratio (10-20) Glucose (70-99) mg/dl POC Glucose > 600 H* (70-99) mg/dl POC Glucose (other) (70-99) mg/dl Lactate 1.9 (0.4-2.0) mmol/L Calcium (8.5-10.1) mg/dl POC Ioniz Calcium Turner (1.12-1.32) mmol/l Phosphorus (2.5-4.9) mg/dl Magnesium (1.8-2.4) mg/dl Total Bilirubin (0.2-1) mg/dl AST (15-37) U/L ALT (12-78) U/L Alkaline Phosphatase (45-117) U/L Total Protein (6.4-8.2) gm/dl Albumin (3.4-5.0) gm/dl Globulin (2.5-4.0) gm/dl Albumin/Globulin Ratio (0.9-2) Beta-Hydroxybutyric Acd (0.2-2.81) mg/dl TSH (0.300-4.500) uIu/ml 08/29/20 Range/Units 19:31 WBC (4.8-10.8) K/uL RBC (4.2-5.4) M/uL Hgb (12.0-16.0) g/dL POC Hgb 13.9 (12.0-16.0) g/dl Hct (37-47) % POC Hct 41 (37-47) % MCV (80-100) fL MCH (25-34) pg MCHC (32-36) g/dL RDW Std Deviation (36.4-46.3) fL RDW Coeff of Quinten (11.5-14.5) % Plt Count (130-400) K/uL MPV (7.4-10.4) fL Neutrophils % (Manual) % Lymphocytes % (Manual) % Monocytes % (Manual) % Metamyelocytes % (Man) % Myelocytes % (Man) % Neutrophils # (Manual) (1.4-6.5) K/uL Total Absolute Neuts (1.4-6.5) K/uL Lymphocytes # (Manual) (1.2-3.4) K/uL Total Abs Lymphocytes (1.2-3.4) K/uL Monocytes # (Manual) (0.11-0.59) K/uL Metamyelocytes # (Man) (0-0) K/uL Myelocytes # (Manual) (0-0) K/uL ABG pH (7.35-7.45) ABG pCO2 (35-46) mmHg ABG pO2 (80-95) mmHg ABG HCO3 (19-24) mmol/L ABG O2 Saturation (90-95) % ABG Base Excess (-9-1.8) mEq/L Andreas Test (Pos) Barometric Pressure mm/Hg Oxygen Given POC Sodium 116 L* (135-144) mmol/L Sodium (136-145) mmol/L POC Potassium 6.6 H* (3.3-5.0) mmol/L Potassium (3.5-5.1) mmol/L POC Chloride 92 L (101-112) mmol/L Chloride (98-107) mmol/L Carbon Dioxide (21-32) mmol/L POC Total CO2 < 5 L* (24-31) mmol/L Anion Gap (3-11) POC Anion Gap 26.0 H (16-25) mmol/L POC BUN 37 H (7-18) mg/dl BUN (7-18) mg/dl Creatinine (0.6-1.2) mg/dl POC Creatinine 1.5 H (0.6-1.3) mg/dl Est Cr Clr Drug Dosing Est GFR ( Amer) Est GFR (Non-Af Amer) BUN/Creatinine Ratio (10-20) Glucose (70-99) mg/dl POC Glucose (70-99) mg/dl POC Glucose (other) > 700 H* (70-99) mg/dl Lactate (0.4-2.0) mmol/L Calcium (8.5-10.1) mg/dl POC Ioniz Calcium Turner 1.21 (1.12-1.32) mmol/l Phosphorus (2.5-4.9) mg/dl Magnesium (1.8-2.4) mg/dl Total Bilirubin (0.2-1) mg/dl AST (15-37) U/L ALT (12-78) U/L Alkaline Phosphatase (45-117) U/L Total Protein (6.4-8.2) gm/dl Albumin (3.4-5.0) gm/dl Globulin (2.5-4.0) gm/dl Albumin/Globulin Ratio (0.9-2) Beta-Hydroxybutyric Acd (0.2-2.81) mg/dl TSH (0.300-4.500) uIu/ml Imaging Data Radiologist's Impression: XR chest 1V portable CLINICAL HISTORY: weakness COMPARISON STUDY: No previous studies for comparison. FINDINGS: The cardiac and mediastinal contours are normal. There is no evidence of focal pulmonary consolidation. There is no evidence of failure. No pleural effusions are visualized.[ IMPRESSION: No active disease in the chest. ACT 112: Negative or not required by law. Electronically signed by: Crow Szymanski M.D. 08/29/2020 7:36 PM Dictated: 08/29/201935 Transcribed: 08/29/201935 ECG Data Attestation: I personally reviewed and interpreted this ECG as follows: Indication: + SOB/dyspnea Rate (beats per minute): 91 Rhythm: + normal sinus ECG Intervals/blocks: + Left anterior fascicular block and + Prolonged QT (469) ECG Findings: + Q waves (Inferior), + PVCs and + Other (RSR prime suggests right ventricular conduction delay-significant artifact) Blood Pressure Blood Pressure Findings: Normal blood pressure Blood Pressure Disposition: further management by hospitalist PIPE Narrative This patient was evaluated and appeared to be in significant distress. An order for cardiac monitoring was placed and the patient is noted to be in a normal sinus rhythm with periodic hypotension. She is Kussmaul breathing. Patient was given 2 L of IV normal saline solution. Bedside glucose was obtained and greater than 600. I-STAT labs were obtained and reveal a glucose greater than 600, sodium of 116, potassium of 6.6 and a bicarb of less than 5. Patient's vital signs did improve after the 2 L of normal saline and 3 L was initiated. Patient's was given 1 amp of calcium gluconate, 5 units of IV insulin due to the hyperkalemia and peaked T waves on EKG. An insulin drip was ordered after the third liter of normal saline solution. ABG confirms the acidosis. The case was discussed with the hospitalist, Dr. Clay, who evaluated the patient quickly. ICU bed was established. Patient's was made aware of the plan and agreed. It appears the patient has a new onset diabetes and DKA. Impression & Plan DKA (diabetic ketoacidoses), Diabetes mellitus type 1, Acute alteration in mental status Discharge Plan Visit Data Chief Complaint: Weakness Stated Complaint: 24 HOURS HAVENT GOTTEN OUT OF BED WEAKNESS ED Provider: Elizabeth Rodriguez Discharge Problem: DKA (diabetic ketoacidoses), Diabetes mellitus type 1, Acute alteration in mental status Patient Disposition: Admitted As Inpatient Discharge Instructions Interventions: ED Discharge Assessment Last Done: 08/29/20 21:02 Discharge Problem: DKA (diabetic ketoacidoses) Qualifiers: Diabetes mellitus type: type 1 Diabetes mellitus complication detail: without coma Qualified Code(s): E10.10 - Type 1 diabetes mellitus with ketoacidosis without coma Diabetes mellitus type 1 Qualifiers: Diabetes mellitus complication status: with ketoacidosis Diabetes mellitus complication detail: without coma Qualified Code(s): E10.10 - Type 1 diabetes mellitus with ketoacidosis without coma
[2020-08-30 00:16] LABS: Beta-Hydroxybutyrate 115.1 mg/dl (0.2-2.81)
[2020-08-30 00:22] LABS: Base Excess VBG -14.8 mEq/L; Oxygen Saturation VBG 67.1 %; pH VBG 7.22 (7.36-7.41)
[2020-08-30 00:50] LABS: BUN Creatinine Ratio 28.7 (10-20); Calcium 8.2 mg/dl (8.5-10.1); Creatinine Clr Calc Pharmacy 34.6 ml/min; Est GFR (Non-African American) 42.3; Magnesium 1.5 mg/dl (1.8-2.4); Potassium 4.7 mmol/L (3.5-5.1)
[2020-08-30 01:19] LABS: Beta-Hydroxybutyrate 83.63 mg/dl (0.2-2.81)
[2020-08-30] MEDS ORDERED: NSS + 20MEQ KCL 20 MEQ/1,000 ML BAG IV SCH (01:30)
[2020-08-30] MEDS: MAGNESIUM SULFATE / D5W 1 GM/100 ML BAG IV SCH ×2 (02:14→04:09)
[2020-08-30] MEDS ORDERED: PIPERACILLIN/TAZOBACTAM 3.375 GM in DEXTROSE 5% 100 ML IV SCH (04:00)
[2020-08-30] MEDS: D5NSS + 20MEQ KCL 20 MEQ/1,000 ML BAG IV SCH ×3 (04:09→13:38)
[2020-08-30 04:25] LABS: INR 1.1 (0.9-1.1); Prothrombin Time 11.4 Seconds (9.0-12.0)
[2020-08-30 04:35] LABS: BUN Creatinine Ratio 27.5 (10-20); Calcium 8.1 mg/dl (8.5-10.1); Creatinine Clr Calc Pharmacy 39.6 ml/min; Est GFR (African American) 57.6; Est GFR (Non-African American) 49.7; Magnesium 1.8 mg/dl (1.8-2.4); Potassium 4.5 mmol/L (3.5-5.1)
[2020-08-30 04:36] LABS: Beta-Hydroxybutyrate 43.76 mg/dl (0.2-2.81)
[2020-08-30] MEDS ORDERED: MAGNESIUM SULFATE / D5W 1 GM/100 ML BAG IV ONE (05:07)
--- NOTE | 2020-08-30 05:56 | Critical Care Progress Note ---
Date of Service August 30, 2020 Assessment & Plan (1) DKA (diabetic ketoacidoses): Reason Critically Ill: 60-year-old female presents to the ICU in severe DKA with new onset type 1 diabetes Neuro [facility] ICU: Negative Cardiac - Hemodynamically stable, normotensive and normal sinus rhythm - Add Lipitor Respiratory - Maintaining oxygen saturation on 2 L nasal cannula - Patient no longer noting any SOB GI -Plan to advance diet and allow patient to eat -DC Pepcid RENAL/LYTES -Abnormalities improved with IVF -Plan to DC IV after patient tolerates a meal -K 4.1, CO2 20 -Foleystrict I's and O's -Patient has had good urine output since admission of roughly 2L ENDO - -DKAinitial blood glucose greater than 1000 with severe electrolyte abnormalities, BHA 155, urine positive for ketones and glucose -Mostly resolved at this point with closed gap -Will continue IV insulin at this time with plans to convert to sq insulin New onset DM type Iunsure of etiology at this time, patient did have A1c of 5.7 in December -May be secondary to viral infection versus autoimmune? -We will need consult for endocrinology and diabetes education once stable Graves' disease/history of hypothyroid/history of thyroidectomyTSH within normal limits -We will continue home dose Synthroid HEME - H&H stable, monitor routine CBCs ID - Patient does present with significant leukocytosis, likely reactionary -Was initially started on broad-spectrum antibiotics in the emergency department vancomycin, Zosyn, azithromycin -Nasal MRSA negative -Lactate negative, pro Farhad negative -Was deescalated to Zosyn in ICU, since DC'd LINES/IV ACCESS - Peripheral IVs DVT PROPHYLAXIS - SCDs Lovenox 40qd Dispo: Patient appropriate for downgrade at this time. (2) Hyperglycemia: (3) Hypothyroidism: (4) Acute alteration in mental status: (5) Acute kidney injury: (6) Admitted to intensive care unit: Admission and Anticipated Discharge Date Admission Date: August 29, 2020 Supervising Physician Co-Signing Physician Notes Dr. Luu was resident physician during care of patient. I separately evaluated patient for liang portions of the history and the exam. I was present during the critical portion of medical decision making, and I discussed the case with the resident. I generally agree with the findings and plan. Transitioning off dextrose containing fluids when taking meal, able to ambulate every shift, starting low-dose Lipitor for elevated cholesterol levels and in the setting of diabetes. Discontinue antibiotics, no culture data at this time, not hypoxic no abdominal pain no evidence of meningismus will watch fever curve. Stable for downgrade out of ICU. Subjective Patient evaluated at the bedside. Noting that she is feeling much better today. States that she was vomiting profusely 2 days ago and that yesterday she primarily felt malaise and increased thirst. No history of diabetes to her knowledge. She notes that this AM she otherwise feels well disregarding some slight lower abdominal tenderness. Review of Systems Constitutional: no fever, no chills and no weakness Eyes: no worsening vision Respiratory: no cough, no dyspnea and no pain on inspiration Cardiovascular: no chest pain, no radiating jaw, neck or arm pain, no dyspnea on exertion and no palpitations Gastrointestinal: + abdominal pain (lower abdominal, slight); no nausea and no vomiting Genitourinary: no dysuria Physical Exam Constitutional: well developed and well nourished; no acute distress Eyes: PERRL, conjunctivae normal, anicteric sclerae ENMT: external ear and nose normal, oropharynx normal Respiratory: normal respiratory effort, lungs clear to auscultation Cardiovascular: RRR, no murmur, no edema Gastrointestinal (Abdomen): Inspection/Auscultation: abdomen normal to inspection and normal bowel sounds; abdomen not distended Percussion/Palpation: + abdomen tender (slight TTP in lower quadrants b/l ) and abdomen soft Musculoskeletal: no cyanosis or clubbing, extremities motor strength 5/5 Skin: no rashes, warm and dry Neurologic: PERRL, EOMI, accommodation nl, no face palsy, no dysarthria Psychiatric: A+Ox3, euthymic affect Results & Data Results & Data ([facility]) Vital Signs (Past 12 Hours) Vital Signs Temp Pulse Pulse Resp BP BP Pulse Ox 08/29/20 23:12 95 H 23 103/61 100 08/29/20 23:00 98 H 20 100 08/29/20 22:43 97 H 08/29/20 22:30 96 H 26 H 100 08/29/20 22:16 36.6 C 95 H 26 H 102/73 99 08/29/20 22:12 97 H 29 H 102/73 98 08/29/20 22:10 98 H 19 08/29/20 20:45 88 25 H 123/75 08/29/20 20:31 89 25 H 100 08/29/20 20:30 91 H 24 125/90 100 08/29/20 20:16 92 H 24 100 08/29/20 20:15 91 H 23 114/71 100 08/29/20 20:01 90 26 H 108/64 100 08/29/20 20:00 89 26 H 99 08/29/20 19:46 85 24 104/68 100 08/29/20 19:45 85 22 100 08/29/20 19:34 84 24 111/72 100 08/29/20 19:31 96 H 24 100 08/29/20 19:30 158 H 27 H 111/72 08/29/20 19:21 128 H 24 105/65 08/29/20 19:15 169 H 26 H 08/29/20 19:01 166 H 25 H 84/66 L 100 08/29/20 19:00 167 H 26 H 98/59 L 91 08/29/20 18:45 171 H 25 H 100 08/29/20 18:42 174 H 21 08/29/20 18:40 174 H 19 105/63 100 08/29/20 18:30 87 18 172/118 H 100 Resident Activity Tracking Resident Involvement: Resident Care Provided Care Provided: Adult Hospital Medicine (1) DKA (diabetic ketoacidoses) Diabetes mellitus complication detail: without coma Diabetes mellitus type: type 1 Qualified Code(s): E10.10 - Type 1 diabetes mellitus with ketoacidosis without coma (2) Hypothyroidism Hypothyroidism type: acquired Qualified Code(s): E03.9 - Hypothyroidism, unsp ecified
[2020-08-30] MEDS: LEVOTHYROXINE SODIUM 125 MCG TABLET PO SCH (06:17)
[2020-08-30 06:31] LABS: Estimated Average Glucose 349 mg/dl; Hemoglobin A1C 13.8 % (4.5-5.6)
[2020-08-30] MEDS: INSULIN ASPART 100 UNITS/ML 3 ML PEN SC SCH ×4 (07:58→21:53)
[2020-08-30] MEDS: FAMOTIDINE 20 MG in SYRINGE 3 ML IV SCH (08:10)
[2020-08-30 08:54] LABS: BUN Creatinine Ratio 22.2 (10-20); Calcium 8.2 mg/dl (8.5-10.1); Creatinine Clr Calc Pharmacy 40.3 ml/min; Est GFR (African American) 58.9; Est GFR (Non-African American) 50.8; Potassium 4.1 mmol/L (3.5-5.1)
[2020-08-30] MEDS ORDERED: ENOXAPARIN INJ 30 MG/0.3 ML SYR SQ SCH (09:00)
[2020-08-30] MEDS ORDERED: AZITHROMYCIN 500 MG in DEXTROSE 5% 250 ML IV SCH (09:00)
--- NOTE | 2020-08-30 09:00 | XCELERA ---
[id number]
--- NOTE | 2020-08-30 09:47 | Billing Data ---
Date of Service August 30, 2020 Coding Level of Care Code 09272 Subseq Hosp Care Lvl 3
--- NOTE | 2020-08-30 09:54 | Hospitalist Progress Note ---
Date of Service August 30, 2020 Assessment & Plan (1) DKA (diabetic ketoacidoses): New diagnosis of type 1 diabetes. Did have evidence of early pre-DM, however, in 12/2019. She has h/o Graves disease at age 18 so her DM is likely autoimmune in nature. DKA is markedly improved s/p fluid resuscitation, insulin infusion, and bicarb infusion overnight. Mentation and labs are better. Cause of DKA - no obvious infection found. CXR w/o pneumonia. COVID-19 negative. u/a not suggestive of UTI. Bicarb infusion now off. To remain on insulin drip. Continue current IV fluids. Continue serial labs. No nausea/emesis thus allow diet. Nutrition and childbirth educator consultations requested. Appreciate ICU assistance. Ok to d/c ICU status and move to PCU. (2) Hypothyroidism: Continue levothyroxine 125 mcg daily. TSH wnl. (3) Acute kidney injury: Creatinine 2.34 at peak. Now 1.1. 2nd to severe dehydration in setting of DKA. Continue IVF. Repeat BMP am. (4) Metabolic acidosis: 2nd DKA - resolving. Continue insulin drip. (5) Hyperkalemia: 2nd to CASTRO and severe DKA. Improved/resolved with Rx of DKA and hyperglycemia. (6) Rhabdomyolysis: CK 874 upon admission. Repeat CPK in am. (7) Acute alteration in mental status: Metabolic encephalopathy in setting of DKA and hyponatremia. Resolving. Continue supportive care. (8) COVID-19 virus antibody negative: noted (9) Mixed hyperlipidemia: LDL 140 Nutrition consultation for dietary counseling (10) Hypophosphatemia: Replace per ICU protocol (11) Leukocytosis: severe WBC elevation to >30. did receive empiric IV antibiotics yesterday. unfortunately blood cultures were not sent in ER. COVID-19 negative. no obvious source of infection. procalcitonin negative. antibiotics d/c by ICU team. repeat CBC am. (12) Hyponatremia: Multifactorial - "pseudo" component from severe hyperglycemia; CASTRO; volume depletion. Marked improvement overnight. Continue IV fluids. Serial labs. (13) Alcohol use: 1-2 glasses wine/day. add MVI, thiamine, folate supplementation. (14) DVT prophylaxis: lovenox Admission and Anticipated Discharge Date Admission Date: August 29, 2020 Subjective Pt easily awoke from sleep. Was oriented to year/month but not place; thought she was in the ER. Reported fatigue but no other complaints. About 1 month ago she stopped drinking wine. Prior to that had been drinking 2 glasses wine each day. Had lost about 8 pounds of weight in the last month. Denies polyuria, polydipsia, polyphagia. No abdominal pain, nausea, emesis. Pt reports h/o Graves Disease dx about age 18. Treated with surgery. Review of Systems Constitutional: + fatigue; no fever and no chills Respiratory: no cough and no dyspnea Cardiovascular: no chest pain Gastrointestinal: no abdominal pain, no nausea and no vomiting Physical Exam Constitutional: + altered mental status; no acute distress ENMT: external ear and nose normal, oropharynx normal Respiratory: normal respiratory effort, lungs clear to auscultation Cardiovascular: Rate/Rhythm: regular rhythm and + tachycardic Heart Sounds: normal S1 and normal S2; no murmur Vessels: posterior tibial pulses present and dorsalis pedis pulses present; no JVD Extremities: no edema Gastrointestinal (Abdomen): Inspection/Auscultation: normal bowel sounds; abdomen not distended Percussion/Palpation: abdomen soft and + hepatomegaly (liver edge palpable ); abdomen nontender Psychiatric: Orientation: alert, oriented to person and oriented to time; + not oriented to place Results & Data Results & Data ([facility]) Vital Signs (Past 12 Hours) Vital Signs Temp Pulse Pulse Resp BP BP Pulse Ox 08/30/20 07:12 101 H 19 94/51 L 97 08/30/20 07:00 100 H 16 97 08/30/20 06:12 100 H 17 106/61 99 08/30/20 06:00 100 H 16 97 08/30/20 05:12 97 H 22 100/64 99 08/30/20 05:00 98 H 18 97 08/30/20 04:12 102 H 19 109/57 L 98 08/30/20 04:00 36.7 C 102 H 18 97 08/30/20 03:12 105 H 20 84/55 L 97 08/30/20 03:00 104 H 20 97 08/30/20 02:12 104 H 21 86/61 L 99 08/30/20 02:00 102 H 17 99 08/30/20 01:12 104 H 22 88/60 L 100 08/30/20 01:00 101 H 22 98 08/30/20 00:12 101 H 17 93/63 L 99 08/30/20 00:00 36.6 C 98 H 19 100 08/29/20 23:13 94 H 22 98 08/29/20 23:12 95 H 23 103/61 100 08/29/20 23:00 98 H 20 100 08/29/20 22:43 97 H 08/29/20 22:30 96 H 26 H 100 08/29/20 22:16 36.6 C 95 H 26 H 102/73 99 08/29/20 22:12 97 H 29 H 102/73 98 08/29/20 22:10 98 H 19 Laboratory Results Laboratory Results - last 24 hr 08/29/20 08/29/20 08/29/20 19:03 19:05 19:05 WBC 36.81 H* RBC 4.66 Hgb 14.6 POC Hgb Hct 46.8 POC Hct MCV 100.4 H MCH 31.3 MCHC 31.2 L RDW Std Deviation 46.3 RDW Coeff of Quinten 12.8 Plt Count 461 H MPV 10.6 H Neutrophils % (Manual) 85.5 Lymphocytes % (Manual) 2.4 Monocytes % (Manual) 8.9 Metamyelocytes % (Man) 1.6 Myelocytes % (Man) 1.6 Neutrophils # (Manual) 31.47 H Total Absolute Neuts 31.47 H Lymphocytes # (Manual) 0.88 L Total Abs Lymphocytes 0.88 L Monocytes # (Manual) 3.28 H Metamyelocytes # (Man) 0.59 H Myelocytes # (Manual) 0.59 H PT INR ABG pH ABG pCO2 ABG pO2 ABG HCO3 ABG O2 Saturation ABG Base Excess Andreas Test VBG pH VBG pCO2 VBG pO2 VBG HCO3 VBG O2 Saturation VBG Base Excess Barometric Pressure Oxygen Given POC Sodium Sodium 113 L* POC Potassium Potassium 6.8 H* POC Chloride Chloride 75 L Carbon Dioxide 5 L* POC Total CO2 Anion Gap 34.0 H POC Anion Gap POC BUN BUN 44 H Creatinine 2.34 H POC Creatinine Est Cr Clr Drug Dosing Not Reportable Est GFR ( Amer) 25.2 Est GFR (Non-Af Amer) 21.7 BUN/Creatinine Ratio 18.6 Glucose 1018 H* POC Glucose > 600 H* POC Glucose (other) Estimat Average Glucose Hemoglobin A1c Lactate Calcium 9.2 POC Ioniz Calcium Turner Phosphorus 7.9 H Magnesium 2.4 Total Bilirubin 0.6 AST 24 ALT 32 Alkaline Phosphatase 106 Total Creatine Kinase Total Protein 8.1 Albumin 3.9 Globulin 4.2 H Albumin/Globulin Ratio 0.9 Beta-Hydroxybutyric Acd 155.58 H Procalcitonin TSH 2.610 Urine Color Urine Appearance Urine pH Ur Specific [place] Urine Protein Urine Glucose (UA) Urine Ketones Urine Blood Urine Nitrite Urine Bilirubin Urine Urobilinogen Ur Leukocyte Esterase Urine WBC (Auto) Urine RBC (Auto) U Hyaline Cast (Auto) U Epithel Cells (Auto) Urine Bacteria (Auto) Nasal Screen MRSA (PCR) COVID-19 Eval Order COVID-19 PCR Hepatitis C Ab Screen 08/29/20 08/29/20 08/29/20 19:05 19:05 19:13 WBC RBC Hgb POC Hgb Hct POC Hct MCV MCH MCHC RDW Std Deviation RDW Coeff of Quinten Plt Count MPV Neutrophils % (Manual) Lymphocytes % (Manual) Monocytes % (Manual) Metamyelocytes % (Man) Myelocytes % (Man) Neutrophils # (Manual) Total Absolute Neuts Lymphocytes # (Manual) Total Abs Lymphocytes Monocytes # (Manual) Metamyelocytes # (Man) Myelocytes # (Manual) PT INR ABG pH ABG pCO2 ABG pO2 ABG HCO3 ABG O2 Saturation ABG Base Excess Andreas Test VBG pH VBG pCO2 VBG pO2 VBG HCO3 VBG O2 Saturation VBG Base Excess Barometric Pressure Oxygen Given POC Sodium Sodium POC Potassium Potassium POC Chloride Chloride Carbon Dioxide POC Total CO2 Anion Gap POC Anion Gap POC BUN BUN Creatinine POC Creatinine Est Cr Clr Drug Dosing Est GFR ( Amer) Est GFR (Non-Af Amer) BUN/Creatinine Ratio Glucose POC Glucose > 600 H* POC Glucose (other) Estimat Average Glucose 349 Hemoglobin A1c 13.8 H Lactate Calcium POC Ioniz Calcium Turner Phosphorus Magnesium Total Bilirubin AST ALT Alkaline Phosphatase Total Creatine Kinase Total Protein Albumin Globulin Albumin/Globulin Ratio Beta-Hydroxybutyric Acd Procalcitonin TSH Urine Color Urine Appearance Urine pH Ur Specific [place] Urine Protein Urine Glucose (UA) Urine Ketones Urine Blood Urine Nitrite Urine Bilirubin Urine Urobilinogen Ur Leukocyte Esterase Urine WBC (Auto) Urine RBC (Auto) U Hyaline Cast (Auto) U Epithel Cells (Auto) Urine Bacteria (Auto) Nasal Screen MRSA (PCR) COVID-19 Eval Order COVID-19 PCR Hepatitis C Ab Screen Neg 08/29/20 08/29/20 08/29/20 19:21 19:28 19:31 WBC RBC Hgb POC Hgb 13.9 Hct POC Hct 41 MCV MCH MCHC RDW Std Deviation RDW Coeff of Quinten Plt Count MPV Neutrophils % (Manual) Lymphocytes % (Manual) Monocytes % (Manual) Metamyelocytes % (Man) Myelocytes % (Man) Neutrophils # (Manual) Total Absolute Neuts Lymphocytes # (Manual) Total Abs Lymphocytes Monocytes # (Manual) Metamyelocytes # (Man) Myelocytes # (Manual) PT INR ABG pH 7.06 L* ABG pCO2 13 L ABG pO2 140 H ABG HCO3 3 L ABG O2 Saturation 98.4 H ABG Base Excess -24.9 L Andreas Test Pos VBG pH VBG pCO2 VBG pO2 VBG HCO3 VBG O2 Saturation VBG Base Excess Barometric Pressure 726.4 Oxygen Given Room Air POC Sodium 116 L* Sodium POC Potassium 6.6 H* Potassium POC Chloride 92 L Chloride Carbon Dioxide POC Total CO2 < 5 L* Anion Gap POC Anion Gap 26.0 H POC BUN 37 H BUN Creatinine POC Creatinine 1.5 H Est Cr Clr Drug Dosing Est GFR ( Amer) Est GFR (Non-Af Amer) BUN/Creatinine Ratio Glucose POC Glucose POC Glucose (other) > 700 H* Estimat Average Glucose Hemoglobin A1c Lactate 1.9 Calcium POC Ioniz Calcium Turner 1.21 Phosphorus Magnesium Total Bilirubin AST ALT Alkaline Phosphatase Total Creatine Kinase Total Protein Albumin Globulin Albumin/Globulin Ratio Beta-Hydroxybutyric Acd Procalcitonin TSH Urine Color Urine Appearance Urine pH Ur Specific [place] Urine Protein Urine Glucose (UA) Urine Ketones Urine Blood Urine Nitrite Urine Bilirubin Urine Urobilinogen Ur Leukocyte Esterase Urine WBC (Auto) Urine RBC (Auto) U Hyaline Cast (Auto) U Epithel Cells (Auto) Urine Bacteria (Auto) Nasal Screen MRSA (PCR) COVID-19 Eval Order COVID-19 PCR Hepatitis C Ab Screen 08/29/20 08/29/20 08/29/20 20:46 20:51 20:51 WBC RBC Hgb POC Hgb Hct POC Hct MCV MCH MCHC RDW Std Deviation RDW Coeff of Quinten Plt Count MPV Neutrophils % (Manual) Lymphocytes % (Manual) Monocytes % (Manual) Metamyelocytes % (Man) Myelocytes % (Man) Neutrophils # (Manual) Total Absolute Neuts Lymphocytes # (Manual) Total Abs Lymphocytes Monocytes # (Manual) Metamyelocytes # (Man) Myelocytes # (Manual) PT INR ABG pH ABG pCO2 ABG pO2 ABG HCO3 ABG O2 Saturation ABG Base Excess Andreas Test VBG pH VBG pCO2 VBG pO2 VBG HCO3 VBG O2 Saturation VBG Base Excess Barometric Pressure Oxygen Given POC Sodium Sodium POC Potassium Potassium POC Chloride Chloride Carbon Dioxide POC Total CO2 Anion Gap POC Anion Gap POC BUN BUN Creatinine POC Creatinine Est Cr Clr Drug Dosing Est GFR ( Amer) Est GFR (Non-Af Amer) BUN/Creatinine Ratio Glucose POC Glucose > 600 H* POC Glucose (other) Estimat Average Glucose Hemoglobin A1c Lactate Calcium POC Ioniz Calcium Turner Phosphorus Magnesium Total Bilirubin AST ALT Alkaline Phosphatase Total Creatine Kinase Total Protein Albumin Globulin Albumin/Globulin Ratio Beta-Hydroxybutyric Acd Procalcitonin TSH Urine Color Urine Appearance Urine pH Ur Specific [place] Urine Protein Urine Glucose (UA) Urine Ketones Urine Blood Urine Nitrite Urine Bilirubin Urine Urobilinogen Ur Leukocyte Esterase Urine WBC (Auto) Urine RBC (Auto) U Hyaline Cast (Auto) U Epithel Cells (Auto) Urine Bacteria (Auto) Nasal Screen MRSA (PCR) COVID-19 Eval Order Covid19 Done at [facility] COVID-19 PCR NEGATIVE Hepatitis C Ab Screen 08/29/20 08/29/20 08/29/20 21:07 21:20 22:09 WBC RBC Hgb POC Hgb Hct POC Hct MCV MCH MCHC RDW Std Deviation RDW Coeff of Quinten Plt Count MPV Neutrophils % (Manual) Lymphocytes % (Manual) Monocytes % (Manual) Metamyelocytes % (Man) Myelocytes % (Man) Neutrophils # (Manual) Total Absolute Neuts Lymphocytes # (Manual) Total Abs Lymphocytes Monocytes # (Manual) Metamyelocytes # (Man) Myelocytes # (Manual) PT INR ABG pH ABG pCO2 ABG pO2 ABG HCO3 ABG O2 Saturation ABG Base Excess Andreas Test VBG pH VBG pCO2 VBG pO2 VBG HCO3 VBG O2 Saturation VBG Base Excess Barometric Pressure Oxygen Given POC Sodium Sodium 127 L D POC Potassium Potassium 5.9 H POC Chloride Chloride 95 L Carbon Dioxide 7 L* POC Total CO2 Anion Gap 25.0 H POC Anion Gap POC BUN BUN 37 H Creatinine 1.67 H D POC Creatinine Est Cr Clr Drug Dosing 28.0 Est GFR ( Amer) 37.9 Est GFR (Non-Af Amer) 32.7 BUN/Creatinine Ratio 22.2 H Glucose 649 H* POC Glucose 560 H* POC Glucose (other) Estimat Average Glucose Hemoglobin A1c Lactate Calcium 8.3 L POC Ioniz Calcium Turner Phosphorus Magnesium Total Bilirubin AST ALT Alkaline Phosphatase Total Creatine Kinase 874 H Total Protein Albumin Globulin Albumin/Globulin Ratio Beta-Hydroxybutyric Acd 115.10 H Procalcitonin TSH Urine Color Yellow Urine Appearance Clear Urine pH 5.0 Ur Specific [place] 1.022 Urine Protein 1+ H Urine Glucose (UA) 3+ H Urine Ketones 4+ H Urine Blood 3+ H Urine Nitrite Negative Urine Bilirubin Negative Urine Urobilinogen Negative Ur Leukocyte Esterase Negative Urine WBC (Auto) 1-5 Urine RBC (Auto) 0-4 U Hyaline Cast (Auto) 1-5 U Epithel Cells (Auto) 10-20 H Urine Bacteria (Auto) Negative Nasal Screen MRSA (PCR) COVID-19 Eval Order COVID-19 PCR Hepatitis C Ab Screen 08/29/20 08/29/20 08/29/20 22:15 23:03 23:48 WBC RBC Hgb POC Hgb Hct POC Hct MCV MCH MCHC RDW Std Deviation RDW Coeff of Quinten Plt Count MPV Neutrophils % (Manual) Lymphocytes % (Manual) Monocytes % (Manual) Metamyelocytes % (Man) Myelocytes % (Man) Neutrophils # (Manual) Total Absolute Neuts Lymphocytes # (Manual) Total Abs Lymphocytes Monocytes # (Manual) Metamyelocytes # (Man) Myelocytes # (Manual) PT INR ABG pH ABG pCO2 ABG pO2 ABG HCO3 ABG O2 Saturation ABG Base Excess Andreas Test VBG pH VBG pCO2 VBG pO2 VBG HCO3 VBG O2 Saturation VBG Base Excess Barometric Pressure Oxygen Given POC Sodium Sodium POC Potassium Potassium POC Chloride Chloride Carbon Dioxide POC Total CO2 Anion Gap POC Anion Gap POC BUN BUN Creatinine POC Creatinine Est Cr Clr Drug Dosing Est GFR ( Amer) Est GFR (Non-Af Amer) BUN/Creatinine Ratio Glucose POC Glucose 536 H* POC Glucose (other) Estimat Average Glucose Hemoglobin A1c Lactate Calcium POC Ioniz Calcium Turner Phosphorus 1.8 L D Magnesium Total Bilirubin AST ALT Alkaline Phosphatase Total Creatine Kinase Total Protein Albumin Globulin Albumin/Globulin Ratio Beta-Hydroxybutyric Acd Procalcitonin TSH Urine Color Urine Appearance Urine pH Ur Specific [place] Urine Protein Urine Glucose (UA) Urine Ketones Urine Blood Urine Nitrite Urine Bilirubin Urine Urobilinogen Ur Leukocyte Esterase Urine WBC (Auto) Urine RBC (Auto) U Hyaline Cast (Auto) U Epithel Cells (Auto) Urine Bacteria (Auto) Nasal Screen MRSA (PCR) Negative COVID-19 Eval Order COVID-19 PCR Hepatitis C Ab Screen 08/29/20 08/29/20 08/30/20 23:48 23:53 00:07 WBC RBC Hgb POC Hgb Hct POC Hct MCV MCH MCHC RDW Std Deviation RDW Coeff of Quinten Plt Count MPV Neutrophils % (Manual) Lymphocytes % (Manual) Monocytes % (Manual) Metamyelocytes % (Man) Myelocytes % (Man) Neutrophils # (Manual) Total Absolute Neuts Lymphocytes # (Manual) Total Abs Lymphocytes Monocytes # (Manual) Metamyelocytes # (Man) Myelocytes # (Manual) PT INR ABG pH ABG pCO2 ABG pO2 ABG HCO3 ABG O2 Saturation ABG Base Excess Andreas Test VBG pH VBG pCO2 VBG pO2 VBG HCO3 VBG O2 Saturation VBG Base Excess Barometric Pressure Oxygen Given POC Sodium Sodium 128 L POC Potassium Potassium 4.7 D POC Chloride Chloride 97 L Carbon Dioxide 12 L POC Total CO2 Anion Gap 19.0 H POC Anion Gap POC BUN BUN 39 H Creatinine 1.35 H D POC Creatinine Est Cr Clr Drug Dosing 34.6 Est GFR ( Amer) 49.0 Est GFR (Non-Af Amer) 42.3 BUN/Creatinine Ratio 28.7 H Glucose 406 H* POC Glucose 431 H* POC Glucose (other) Estimat Average Glucose Hemoglobin A1c Lactate Calcium 8.2 L POC Ioniz Calcium Turner Phosphorus Magnesium 1.5 L Total Bilirubin AST ALT Alkaline Phosphatase Total Creatine Kinase Total Protein Albumin Globulin Albumin/Globulin Ratio Beta-Hydroxybutyric Acd 83.63 H Procalcitonin 0.41 TSH Urine Color Urine Appearance Urine pH Ur Specific [place] Urine Protein Urine Glucose (UA) Urine Ketones Urine Blood Urine Nitrite Urine Bilirubin Urine Urobilinogen Ur Leukocyte Esterase Urine WBC (Auto) Urine RBC (Auto) U Hyaline Cast (Auto) U Epithel Cells (Auto) Urine Bacteria (Auto) Nasal Screen MRSA (PCR) COVID-19 Eval Order COVID-19 PCR Hepatitis C Ab Screen 08/30/20 08/30/20 08/30/20 00:07 01:08 02:07 WBC RBC Hgb POC Hgb Hct POC Hct MCV MCH MCHC RDW Std Deviation RDW Coeff of Quinten Plt Count MPV Neutrophils % (Manual) Lymphocytes % (Manual) Monocytes % (Manual) Metamyelocytes % (Man) Myelocytes % (Man) Neutrophils # (Manual) Total Absolute Neuts Lymphocytes # (Manual) Total Abs Lymphocytes Monocytes # (Manual) Metamyelocytes # (Man) Myelocytes # (Manual) PT INR ABG pH ABG pCO2 ABG pO2 ABG HCO3 ABG O2 Saturation ABG Base Excess Andreas Test VBG pH 7.22 L VBG pCO2 28 L VBG pO2 34 VBG HCO3 11 VBG O2 Saturation 67.1 VBG Base Excess -14.8 Barometric Pressure 727.0 Oxygen Given POC Sodium Sodium POC Potassium Potassium POC Chloride Chloride Carbon Dioxide POC Total CO2 Anion Gap POC Anion Gap POC BUN BUN Creatinine POC Creatinine Est Cr Clr Drug Dosing Est GFR ( Amer) Est GFR (Non-Af Amer) BUN/Creatinine Ratio Glucose POC Glucose 349 H* 260 H POC Glucose (other) Estimat Average Glucose Hemoglobin A1c Lactate Calcium POC Ioniz Calcium Turner Phosphorus Magnesium Total Bilirubin AST ALT Alkaline Phosphatase Total Creatine Kinase Total Protein Albumin Globulin Albumin/Globulin Ratio Beta-Hydroxybutyric Acd Procalcitonin TSH Urine Color Urine Appearance Urine pH Ur Specific [place] Urine Protein Urine Glucose (UA) Urine Ketones Urine Blood Urine Nitrite Urine Bilirubin Urine Urobilinogen Ur Leukocyte Esterase Urine WBC (Auto) Urine RBC (Auto) U Hyaline Cast (Auto) U Epithel Cells (Auto) Urine Bacteria (Auto) Nasal Screen MRSA (PCR) COVID-19 Eval Order COVID-19 PCR Hepatitis C Ab Screen 08/30/20 08/30/20 08/30/20 03:03 03:52 03:53 WBC RBC Hgb POC Hgb Hct POC Hct MCV MCH MCHC RDW Std Deviation RDW Coeff of Quinten Plt Count MPV Neutrophils % (Manual) Lymphocytes % (Manual) Monocytes % (Manual) Metamyelocytes % (Man) Myelocytes % (Man) Neutrophils # (Manual) Total Absolute Neuts Lymphocytes # (Manual) Total Abs Lymphocytes Monocytes # (Manual) Metamyelocytes # (Man) Myelocytes # (Manual) PT 11.4 INR 1.1 ABG pH ABG pCO2 ABG pO2 ABG HCO3 ABG O2 Saturation ABG Base Excess Andreas Test VBG pH VBG pCO2 VBG pO2 VBG HCO3 VBG O2 Saturation VBG Base Excess Barometric Pressure Oxygen Given POC Sodium Sodium 131 L POC Potassium Potassium 4.5 POC Chloride Chloride 100 Carbon Dioxide 18 L POC Total CO2 Anion Gap 13.0 H POC Anion Gap POC BUN BUN 32 H Creatinine 1.18 POC Creatinine Est Cr Clr Drug Dosing 39.6 Est GFR ( Amer) 57.6 Est GFR (Non-Af Amer) 49.7 BUN/Creatinine Ratio 27.5 H Glucose 217 H POC Glucose 238 H POC Glucose (other) Estimat Average Glucose Hemoglobin A1c Lactate Calcium 8.1 L POC Ioniz Calcium Turner Phosphorus Magnesium 1.8 Total Bilirubin AST ALT Alkaline Phosphatase Total Creatine Kinase Total Protein Albumin Globulin Albumin/Globulin Ratio Beta-Hydroxybutyric Acd 43.76 H Procalcitonin TSH Urine Color Urine Appearance Urine pH Ur Specific [place] Urine Protein Urine Glucose (UA) Urine Ketones Urine Blood Urine Nitrite Urine Bilirubin Urine Urobilinogen Ur Leukocyte Esterase Urine WBC (Auto) Urine RBC (Auto) U Hyaline Cast (Auto) U Epithel Cells (Auto) Urine Bacteria (Auto) Nasal Screen MRSA (PCR) COVID-19 Eval Order COVID-19 PCR Hepatitis C Ab Screen 08/30/20 08/30/20 08/30/20 03:59 05:12 06:15 WBC RBC Hgb POC Hgb Hct POC Hct MCV MCH MCHC RDW Std Deviation RDW Coeff of Quinten Plt Count MPV Neutrophils % (Manual) Lymphocytes % (Manual) Monocytes % (Manual) Metamyelocytes % (Man) Myelocytes % (Man) Neutrophils # (Manual) Total Absolute Neuts Lymphocytes # (Manual) Total Abs Lymphocytes Monocytes # (Manual) Metamyelocytes # (Man) Myelocytes # (Manual) PT INR ABG pH ABG pCO2 ABG pO2 ABG HCO3 ABG O2 Saturation ABG Base Excess Andreas Test VBG pH VBG pCO2 VBG pO2 VBG HCO3 VBG O2 Saturation VBG Base Excess Barometric Pressure Oxygen Given POC Sodium Sodium POC Potassium Potassium POC Chloride Chloride Carbon Dioxide POC Total CO2 Anion Gap POC Anion Gap POC BUN BUN Creatinine POC Creatinine Est Cr Clr Drug Dosing Est GFR ( Amer) Est GFR (Non-Af Amer) BUN/Creatinine Ratio Glucose POC Glucose 235 H 248 H 236 H POC Glucose (other) Estimat Average Glucose Hemoglobin A1c Lactate Calcium POC Ioniz Calcium Turner Phosphorus Magnesium Total Bilirubin AST ALT Alkaline Phosphatase Total Creatine Kinase Total Protein Albumin Globulin Albumin/Globulin Ratio Beta-Hydroxybutyric Acd Procalcitonin TSH Urine Color Urine Appearance Urine pH Ur Specific [place] Urine Protein Urine Glucose (UA) Urine Ketones Urine Blood Urine Nitrite Urine Bilirubin Urine Urobilinogen Ur Leukocyte Esterase Urine WBC (Auto) Urine RBC (Auto) U Hyaline Cast (Auto) U Epithel Cells (Auto) Urine Bacteria (Auto) Nasal Screen MRSA (PCR) COVID-19 Eval Order COVID-19 PCR Hepatitis C Ab Screen 08/30/20 08/30/20 08/30/20 08:02 08:02 08:02 WBC Pending RBC Pending Hgb Pending POC Hgb Hct Pending POC Hct MCV Pending MCH Pending MCHC Pending RDW Std Deviation RDW Coeff of Quinten Plt Count Pending MPV Neutrophils % (Manual) Lymphocytes % (Manual) Monocytes % (Manual) Metamyelocytes % (Man) Myelocytes % (Man) Neutrophils # (Manual) Total Absolute Neuts Lymphocytes # (Manual) Total Abs Lymphocytes Monocytes # (Manual) Metamyelocytes # (Man) Myelocytes # (Manual) PT INR ABG pH ABG pCO2 ABG pO2 ABG HCO3 ABG O2 Saturation ABG Base Excess Andreas Test VBG pH VBG pCO2 VBG pO2 VBG HCO3 VBG O2 Saturation VBG Base Excess Barometric Pressure Oxygen Given POC Sodium Sodium 134 L POC Potassium Potassium 4.1 POC Chloride Chloride 107 Carbon Dioxide 20 L POC Total CO2 Anion Gap 7.0 POC Anion Gap POC BUN BUN 26 H Creatinine 1.16 POC Creatinine Est Cr Clr Drug Dosing 40.3 Est GFR ( Amer) 58.9 Est GFR (Non-Af Amer) 50.8 BUN/Creatinine Ratio 22.2 H Glucose 257 H POC Glucose POC Glucose (other) Estimat Average Glucose Hemoglobin A1c Lactate Calcium 8.2 L POC Ioniz Calcium Turner Phosphorus Magnesium 2.5 H Total Bilirubin AST ALT Alkaline Phosphatase Total Creatine Kinase Total Protein Albumin Globulin Albumin/Globulin Ratio Beta-Hydroxybutyric Acd Procalcitonin TSH Urine Color Urine Appearance Urine pH Ur Specific [place] Urine Protein Urine Glucose (UA) Urine Ketones Urine Blood Urine Nitrite Urine Bilirubin Urine Urobilinogen Ur Leukocyte Esterase Urine WBC (Auto) Urine RBC (Auto) U Hyaline Cast (Auto) U Epithel Cells (Auto) Urine Bacteria (Auto) Nasal Screen MRSA (PCR) COVID-19 Eval Order COVID-19 PCR Hepatitis C Ab Screen 08/30/20 08/30/20 08:03 09:03 WBC RBC Hgb POC Hgb Hct POC Hct MCV MCH MCHC RDW Std Deviation RDW Coeff of Quinten Plt Count MPV Neutrophils % (Manual) Lymphocytes % (Manual) Monocytes % (Manual) Metamyelocytes % (Man) Myelocytes % (Man) Neutrophils # (Manual) Total Absolute Neuts Lymphocytes # (Manual) Total Abs Lymphocytes Monocytes # (Manual) Metamyelocytes # (Man) Myelocytes # (Manual) PT INR ABG pH ABG pCO2 ABG pO2 ABG HCO3 ABG O2 Saturation ABG Base Excess Andreas Test VBG pH VBG pCO2 VBG pO2 VBG HCO3 VBG O2 Saturation VBG Base Excess Barometric Pressure Oxygen Given POC Sodium Sodium POC Potassium Potassium POC Chloride Chloride Carbon Dioxide POC Total CO2 Anion Gap POC Anion Gap POC BUN BUN Creatinine POC Creatinine Est Cr Clr Drug Dosing Est GFR ( Amer) Est GFR (Non-Af Amer) BUN/Creatinine Ratio Glucose POC Glucose 253 H 262 H POC Glucose (other) Estimat Average Glucose Hemoglobin A1c Lactate Calcium POC Ioniz Calcium Turner Phosphorus Magnesium Total Bilirubin AST ALT Alkaline Phosphatase Total Creatine Kinase Total Protein Albumin Globulin Albumin/Globulin Ratio Beta-Hydroxybutyric Acd Procalcitonin TSH Urine Color Urine Appearance Urine pH Ur Specific [place] Urine Protein Urine Glucose (UA) Urine Ketones Urine Blood Urine Nitrite Urine Bilirubin Urine Urobilinogen Ur Leukocyte Esterase Urine WBC (Auto) Urine RBC (Auto) U Hyaline Cast (Auto) U Epithel Cells (Auto) Urine Bacteria (Auto) Nasal Screen MRSA (PCR) COVID-19 Eval Order COVID-19 PCR Hepatitis C Ab Screen Diagnostic Findings echo findings reviewed cxr and EKG findings reviewed PG Care Time/CCT Total # of Minutes Spent Total Time Spent with Patient: Total time spent is greater than 50% in coordination of care (as documented) at patient's floor/unit and/or counseling patient: Coding Level of Care Code 58962 [facility] Diagnoses DKA (diabetic ketoacidoses) E10.10 Diabetes mellitus complication detail: without coma Diabetes mellitus type: type 1 Hypothyroidism E03.9 Hypothyroidism type: acquired Acute kidney injury N17.9 Metabolic acidosis E87.2 Hyperkalemia E87.5 Rhabdomyolysis M62.82 Rhabdomyolysis type: non-traumatic Acute alteration in mental status R41.82 COVID-19 virus antibody negative Z78.9 Mixed hyperlipidemia E78.2 Hypophosphatemia E83.39 Leukocytosis D72.829 Leukocytosis type: unspecified Hyponatremia E87.1 Alcohol use Z72.89 DVT prophylaxis Z29.9 (1) DKA (diabetic ketoacidoses) Diabetes mellitus complication detail: without coma Diabetes mellitus type: type 1 Qualified Code(s): E10.10 - Type 1 diabetes mellitus with ketoacidosis without coma (2) Hypothyroidism Hypothyroidism type: acquired Qualified Code(s): E03.9 - Hypothyroidism, unspecified (3) Rhabdomyolysis Rhabdomyolysis type: non-traumatic Qualified Code(s): M62.82 - Rhabdomyolysis (4) Leukocytosis Leukocytosis type: unspecified Qualified Code(s): D72.829 - Elevated white blood cell count, unspecified
[2020-08-30 10:03] LABS: Mean Corpuscular Volume 92.2 fL (80-100)
[2020-08-30 10:07] LABS: Hematocrit (blood only) 31.8 % (37-47); Hemoglobin 11.5 g/dL (12.0-16.0); Mean Corpuscular Hemoglobin 31.3 pg (25-34); Mean Corpuscular Hgb Conc 36.2 g/dL (32-36); Mean Corpuscular Volume 86.4 fL (80-100); Mean Platelet Volume 9.5 fL (7.4-10.4); Platelet Count 218 K/uL (130-400); RDW Coefficient of Variation 12.1 % (11.5-14.5); RDW Standard Deviation 37.7 fL (36.4-46.3); Red Blood Count 3.68 M/uL (4.2-5.4); White Blood Count 12.94 K/uL (4.8-10.8)
[2020-08-30 10:08] LABS: Basophils # (auto) 0.01 K/uL (0-0.2); Basophils % (auto) 0.1 %; Immature Granulocytes # (auto) 0.08 K/uL (0.00-0.02); Immature Granulocytes % (auto) 0.6 %; Lymphocytes # (auto) 1.04 K/uL (1.2-3.4); Monocytes # (auto) 0.42 K/uL (0.11-0.59); Monocytes % (auto) 3.2 %; Neutrophils # (auto) 11.39 K/uL (1.4-6.5); Neutrophils % (auto) 88.1 %; Platelet Estimate Normal (Normal)
[2020-08-30] MEDS: THIAMINE HCL 100 MG TAB PO SCH ×2 (10:59→21:54)
[2020-08-30] MEDS: CEROVITE ADV FORMULA TAB PO SCH (10:59)
[2020-08-30] MEDS: FOLIC ACID 1 MG TAB PO SCH (10:59)
[2020-08-30 12:11] LABS: Calcium 8.4 mg/dl (8.5-10.1); Creatinine Clr Calc Pharmacy 42.9 ml/min; Est GFR (African American) 63.5; Est GFR (Non-African American) 54.7; Magnesium 2.4 mg/dl (1.8-2.4); Potassium 3.6 mmol/L (3.5-5.1)
[2020-08-30] MEDS ORDERED: PHARMACY GLYCEMIC MGMT CONSULT STA (12:39)
[2020-08-30] MEDS ORDERED: Nursing to Pharmacy Communication SCH (12:45)
[2020-08-30] MEDS ORDERED: PHARMACY GLYCEMIC MGMT CONSULT PRN (12:53)
[2020-08-30] MEDS: ATORVASTATIN 20 MG TAB PO SCH (13:21)
--- NOTE | 2020-08-30 13:25 | Pharmacy Report ---
Glycemic Control Consultation - Date of Service August 30, 2020 - Scope Scope: Glycemic Pharmacist consulted for glycemic control and to write orders per [facility] inpatient glycemic control protocol. - Objective Weight: 56.9 kg Accuchecks BSG (last 24hrs): 08/29/20 08/29/20 08/29/20 19:03 19:05 19:13 Glucose 1018 H* POC Glucose > 600 H* > 600 H* POC Glucose (other) 08/29/20 08/29/20 08/29/20 19:31 20:46 21:20 Glucose 649 H* POC Glucose > 600 H* POC Glucose (other) > 700 H* 08/29/20 08/29/20 08/29/20 22:09 23:03 23:53 Glucose POC Glucose 560 H* 536 H* 431 H* POC Glucose (other) 08/30/20 08/30/20 08/30/20 00:07 01:08 02:07 Glucose 406 H* POC Glucose 349 H* 260 H POC Glucose (other) 08/30/20 08/30/20 08/30/20 03:03 03:53 03:59 Glucose 217 H POC Glucose 238 H 235 H POC Glucose (other) 08/30/20 08/30/20 08/30/20 05:12 06:15 08:02 Glucose 257 H POC Glucose 248 H 236 H POC Glucose (other) 08/30/20 08/30/20 08/30/20 08:03 09:03 10:09 Glucose POC Glucose 253 H 262 H 228 H POC Glucose (other) 08/30/20 08/30/20 08/30/20 11:02 11:43 12:00 Glucose 198 H POC Glucose 208 H 248 H POC Glucose (other) 08/30/20 12:57 Glucose POC Glucose 192 H POC Glucose (other) Laboratory Data (last 24hrs): 08/29/20 08/29/20 08/30/20 19:05 21:20 00:07 Potassium 6.8 H* 5.9 H 4.7 D Carbon Dioxide 5 L* 7 L* 12 L Anion Gap 34.0 H 25.0 H 19.0 H Creatinine 2.34 H 1.67 H D 1.35 H D Est Cr Clr Drug Dosing Not Reportable 28.0 34.6 Beta-Hydroxybutyric Acd 155.58 H 115.10 H 83.63 H 08/30/20 08/30/20 08/30/20 03:53 08:02 11:43 Potassium 4.5 4.1 3.6 Carbon Dioxide 18 L 20 L 21 Anion Gap 13.0 H 7.0 7.0 Creatinine 1.18 1.16 1.09 Est Cr Clr Drug Dosing 39.6 40.3 42.9 Beta-Hydroxybutyric Acd 43.76 H HbA1c: Hemoglobin A1c 13.8 % (4.5-5.6) H 08/29/20 19:05 - Recent Pertinent Medications Outpatient Anti-diabetic Regimen: * None * A1c = 13.8% on 08/29/20 which is a significant increase from ~6% in December 2019 The patient is currently receiving: * Insulin drip @ 9.2 units/hr Risk Factors for Insulin Resistance: * IVF: D5W containing IVF stopped at ~1400 today * Diet: T1DM - Assessment & Plan Assessment & Plan: ASSESSMENT: * 60 yo F with no known history of diabetes (and actually a *normal* HbA1c only 8 months ago) admitted with DKA. HbA1c with significant elevation now to 13.8%. Due to this abrupt increase - concern for late-onset type 1 diabetes. Endocrinology has been consulted to weigh-in. * Spoke w Dr. Chin - anion gap and acidosis have resolved - OK to remove dextrose from fluids and initiate Lantus. * Insulin drip continues at high rates. Expect rates to decrease now that dextrose removed from fluids and Lantus started, but I doubt that this will fully transition the patient off of the drip. Anticipate ability to fully transition off tomorrow AM/afternoon * OK to decrease goal range of drip now that acidosis has resolved PLAN FOR INPATIENT GLYCEMIC CONTROL: * Continue IV insulin infusion * Goal Range 140 - 180 mg/dl * Basal insulin * Lantus 22 units SQ x1 now * Bolus insulin * NovoLog per scale ACHS w CHO ratio determined by insulin drip calculator * Please note that the plan above was derived based on current level of insulin resistance and hospital stress. These recommendations are appropriate for inpatient admission only. Plan of care upon discharge will need to be reassessed to avoid potential outpatient hypo/hyperglycemia. Thank you.
[2020-08-30] MEDS ORDERED: INSULIN GLARGINE SOLOSTAR 100 UNITS/ML 3 ML PEN SC ONE (13:30)
[2020-08-30] MEDS: NSS + 20MEQ KCL 20 MEQ/1,000 ML BAG IV SCH (13:47)
[2020-08-30] MEDS: ACETAMINOPHEN 325 MG TAB PO PRN (21:59)
--- NOTE | 2020-08-30 22:12 | Electrocardiogram Report ---
Test Reason : Blood Pressure : / mmHG Vent. Rate : 091 BPM Atrial Rate : 091 BPM P-R Int : 152 ms QRS Dur : 090 ms QT Int : 382 ms P-R-T Axes : 055 -50 035 degrees QTc Int : 469 ms Poor data quality, interpretation may be adversely affected Sinus rhythm RSR' or QR pattern in V1 suggests right ventricular conduction delay Left anterior fascicular block Cannot rule out Inferior infarct , age undetermined Abnormal ECG No previous ECGs available Confirmed by Phan Lewis ([id number]) on 08/30/2020 10:12:11 PM Referred By: Danny Wolfe Confirmed By:Phan Lewis
[2020-08-31] MEDS ORDERED: INSULIN ASPART 100 UNITS/ML 3 ML PEN SC SCH
[2020-08-31] MEDS: NSS + 20MEQ KCL 20 MEQ/1,000 ML BAG IV SCH ×2 (00:22→08:15)
--- NOTE | 2020-08-31 05:56 | Electrocardiogram Report ---
Test Reason : Blood Pressure : / mmHG Vent. Rate : 099 BPM Atrial Rate : 099 BPM P-R Int : 132 ms QRS Dur : 080 ms QT Int : 358 ms P-R-T Axes : 076 049 082 degrees QTc Int : 459 ms Normal sinus rhythm Incomplete right bundle branch block When compared with ECG of 29-AUG-2020 18:50, Left anterior fascicular block is no longer Present Criteria for Inferior infarct are no longer Present T wave amplitude has decreased in Anterolateral leads Confirmed by Phan Lewis ([id number]) on 08/31/2020 5:56:19 AM Referred By: Danny Wolfe Confirmed By:Phan Lewis
[2020-08-31] MEDS: LEVOTHYROXINE SODIUM 125 MCG TABLET PO SCH (06:34)
[2020-08-31 07:18] LABS: Eosinophils # (auto) 0.01 K/uL (0-0.5); Eosinophils % (auto) 0.1 %; Hematocrit (blood only) 32.7 % (37-47); Hemoglobin 11.7 g/dL (12.0-16.0); Immature Granulocytes # (auto) 0.01 K/uL (0.00-0.02); Immature Granulocytes % (auto) 0.1 %; Lymphocytes # (auto) 0.34 K/uL (1.2-3.4); Lymphocytes % (auto) 3.8 %; Mean Corpuscular Hemoglobin 31.5 pg (25-34); Mean Corpuscular Hgb Conc 35.8 g/dL (32-36); Mean Corpuscular Volume 88.1 fL (80-100); Mean Platelet Volume 9.6 fL (7.4-10.4); Monocytes # (auto) 1.01 K/uL (0.11-0.59); Monocytes % (auto) 11.3 %; Neutrophils # (auto) 7.57 K/uL (1.4-6.5); Neutrophils % (auto) 84.7 %; Platelet Count 192 K/uL (130-400); RDW Coefficient of Variation 13.1 % (11.5-14.5); RDW Standard Deviation 42.2 fL (36.4-46.3); Red Blood Count 3.71 M/uL (4.2-5.4); White Blood Count 8.94 K/uL (4.8-10.8)
[2020-08-31] MEDS: ACETAMINOPHEN 325 MG TAB PO PRN (07:32)
[2020-08-31 07:52] LABS: BUN Creatinine Ratio 18.9 (10-20); Calcium 8.4 mg/dl (8.5-10.1); Creatinine Clr Calc Pharmacy 70.8 ml/min; Est GFR (African American) 110.5; Est GFR (Non-African American) 95.3; Potassium 3.6 mmol/L (3.5-5.1)
[2020-08-31] MEDS: ATORVASTATIN 20 MG TAB PO SCH (08:14)
[2020-08-31] MEDS: THIAMINE HCL 100 MG TAB PO SCH ×2 (08:14→21:13)
[2020-08-31] MEDS: CEROVITE ADV FORMULA TAB PO SCH (08:14)
[2020-08-31] MEDS: FOLIC ACID 1 MG TAB PO SCH (08:14)
[2020-08-31] MEDS: ENOXAPARIN INJ 40 MG/0.4 ML SYR SQ SCH (08:15)
[2020-08-31] MEDS: INSULIN ASPART 100 UNITS/ML 3 ML PEN SC SCH ×4 (08:22→21:12)
[2020-08-31] MEDS: FAMOTIDINE 20 MG TAB PO SCH ×2 (08:26→21:12)
[2020-08-31] MEDS ORDERED: FAMOTIDINE 20 MG in SYRINGE 3 ML IV SCH (09:00)
[2020-08-31] MEDS ORDERED: INSULIN GLARGINE SOLOSTAR 100 UNITS/ML 3 ML PEN SC ONE (09:00)
--- NOTE | 2020-08-31 09:36 | Hospitalist Progress Note ---
Date of Service August 31, 2020 Assessment & Plan (1) DKA (diabetic ketoacidoses): RESOLVED. IV insulin off; transitioned to SC insulin regimen. New diagnosis of type 1 diabetes. Did have evidence of early pre-DM, however, in 12/2019. She has h/o Graves disease at age 18 so her DM is likely autoimmune in nature. Anti-CARROL, anti-insulin, anti-islet cell ab's sent. Refer to endocrine post-d/c. Cause of DKA - no obvious infection found despite markedly elevated WBC count at admission. CXR w/o pneumonia. COVID-19 negative. u/a not suggestive of UTI. See "fever" below. 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 Continue to adjust basal-bolus insulins. (2) Low grade fever: Cause uncertain. Admission COVID-19 negative. Admission u/a not suggestive of UTI. Blood cx's not sent - will order now. Repeat u/a and urine cx due to recent mayorga. Repeat cxr. If anything suspicious on the above start empiric abx. Recheck procalcitonin. Consider rechecking COVID-19 PCR if fever, anorexia, weakness persists. (3) Hypothyroidism: Continue levothyroxine 125 mcg daily. TSH wnl. (4) Acute kidney injury: Creatinine 2.34 at peak. Now 0.6. Resolved. 2nd to severe dehydration in setting of DKA. Stop IV fluids today. BMP am. (5) Metabolic acidosis: 2nd DKA - resolved. (6) Hyperkalemia: 2nd to CASTRO and severe DKA. Resolved. (7) Rhabdomyolysis: CK 874 upon admission. Resolved. (8) Acute alteration in mental status: Metabolic encephalopathy in setting of DKA and hyponatremia. Just about fully resolved. Continue supportive care. (9) COVID-19 virus antibody negative: noted (10) Mixed hyperlipidemia: LDL 140 Nutrition consultation for dietary counseling Statin started this admission (lipitor 20mg daily) (11) Hypophosphatemia: Repeat level am (12) Leukocytosis: severe WBC elevation to >30. did receive empiric IV antibiotics in ICU but they were stopped. WBC count normalized. Now with low-grade fever -- see above. Repeat cbc am. (13) Hyponatremia: Multifactorial - "pseudo" component from severe hyperglycemia; CASTRO; volume depletion. Resolved. Stop IV fluids. (14) Alcohol use: 2-3 glasses wine/day up until 1 month ago. Continue MVI, thiamine, folate supplementation. (15) DVT prophylaxis: lovenox daily remove tierra PT, OT roxane requested , Saeid, updated by phone today Admission and Anticipated Discharge Date Admission Date: August 29, 2020 Subjective patient tired again today but improved from yesterday. she still has poor appetite. denies any dyspnea. denies cough. denies abd pain, nausea, emesis. tele overnight wnl. no fevers/chills. no myalgias. no loss of taste or smell. she does feel overwhelmed by the new dx of T1DM. visited a winery on Saturday - large # of people were present indoors. Review of Systems Constitutional: + fatigue, + weakness and + anorexia; no fever, no chills and no body aches Ear, Nose, Mouth, Throat: no loss of taste or smell Respiratory: no cough and no dyspnea Cardiovascular: no chest pain Gastrointestinal: no abdominal pain, no nausea and no vomiting Physical Exam Constitutional: no acute distress and no altered mental status (resolved today; thinking much more coherently ) ENMT: external ear and nose normal, oropharynx normal Respiratory: normal respiratory effort, lungs clear to auscultation Cardiovascular: Rate/Rhythm: regular rhythm and + tachycardic Heart Sounds: normal S1 and normal S2; no murmur Vessels: posterior tibial pulses present and dorsalis pedis pulses present; no JVD Extremities: no edema Gastrointestinal (Abdomen): Inspection/Auscultation: normal bowel sounds; abdomen not distended Percussion/Palpation: abdomen soft; abdomen nontender and no hepatosplenomegaly Skin: no rashes, warm and dry Psychiatric: Orientation: alert, oriented to person, oriented to place and oriented to time Results & Data Results & Data ([facility]) Vital Signs (Past 12 Hours) Vital Signs Temp Pulse Resp BP Pulse Ox 08/31/20 07:55 36.7 C 101 H 16 115/73 99 08/31/20 03:58 37.1 C 94 H 14 117/73 98 08/30/20 23:53 36.8 C 96 H 16 106/70 97 Laboratory Results Laboratory Results - last 24 hr 08/29/20 08/30/20 08/30/20 19:05 08:02 10:09 WBC 12.94 H D RBC 3.68 L Hgb 11.5 L D Hct 31.8 L MCV 92.2 86.4 D MCH 31.3 MCHC 36.2 H D RDW Std Deviation 37.7 RDW Coeff of Quinten 12.1 Plt Count 218 D MPV 9.5 Immature Gran % (Auto) 0.6 Neut % (Auto) 88.1 Lymph % (Auto) 8.0 Rolette % (Auto) 3.2 Eos % (Auto) 0.0 Baso % (Auto) 0.1 Neut # (Auto) 11.39 H Lymph # (Auto) 1.04 L Rolette # (Auto) 0.42 Eos # (Auto) 0.00 Baso # (Auto) 0.01 Immature Gran # (Auto) 0.08 H Platelet Estimate Normal Sodium Potassium Chloride Carbon Dioxide Anion Gap BUN Creatinine Est Cr Clr Drug Dosing Est GFR ( Amer) Est GFR (Non-Af Amer) BUN/Creatinine Ratio Glucose POC Glucose 228 H Calcium Magnesium Total Creatine Kinase Lipase Islet Cell Antibody Anti-CARROL 65 Antibody Insulin Autoantibody 08/30/20 08/30/20 08/30/20 11:02 11:43 11:43 WBC RBC Hgb Hct MCV MCH MCHC RDW Std Deviation RDW Coeff of Quinten Plt Count MPV Immature Gran % (Auto) Neut % (Auto) Lymph % (Auto) Rolette % (Auto) Eos % (Auto) Baso % (Auto) Neut # (Auto) Lymph # (Auto) Rolette # (Auto) Eos # (Auto) Baso # (Auto) Immature Gran # (Auto) Platelet Estimate Sodium 133 L Potassium 3.6 Chloride 105 Carbon Dioxide 21 Anion Gap 7.0 BUN 22 H Creatinine 1.09 Est Cr Clr Drug Dosing 42.9 Est GFR ( Amer) 63.5 Est GFR (Non-Af Amer) 54.7 BUN/Creatinine Ratio 20.0 Glucose 198 H POC Glucose 208 H Calcium 8.4 L Magnesium Cancelled 2.4 Total Creatine Kinase Lipase Islet Cell Antibody Anti-CARROL 65 Antibody Insulin Autoantibody 08/30/20 08/30/20 08/30/20 11:43 12:00 12:57 WBC RBC Hgb Hct MCV MCH MCHC RDW Std Deviation RDW Coeff of Quinten Plt Count MPV Immature Gran % (Auto) Neut % (Auto) Lymph % (Auto) Rolette % (Auto) Eos % (Auto) Baso % (Auto) Neut # (Auto) Lymph # (Auto) Rolette # (Auto) Eos # (Auto) Baso # (Auto) Immature Gran # (Auto) Platelet Estimate Sodium Potassium Chloride Carbon Dioxide Anion Gap BUN Creatinine Est Cr Clr Drug Dosing Est GFR ( Amer) Est GFR (Non-Af Amer) BUN/Creatinine Ratio Glucose POC Glucose 248 H 192 H Calcium Magnesium Total Creatine Kinase Lipase 556 H Islet Cell Antibody Anti-CARROL 65 Antibody Insulin Autoantibody 08/30/20 08/30/20 08/30/20 13:51 15:00 15:17 WBC RBC Hgb Hct MCV MCH MCHC RDW Std Deviation RDW Coeff of Quinten Plt Count MPV Immature Gran % (Auto) Neut % (Auto) Lymph % (Auto) Rolette % (Auto) Eos % (Auto) Baso % (Auto) Neut # (Auto) Lymph # (Auto) Rolette # (Auto) Eos # (Auto) Baso # (Auto) Immature Gran # (Auto) Platelet Estimate Sodium Potassium Chloride Carbon Dioxide Anion Gap BUN Creatinine Est Cr Clr Drug Dosing Est GFR ( Amer) Est GFR (Non-Af Amer) BUN/Creatinine Ratio Glucose POC Glucose 160 H 104 H 118 H Calcium Magnesium Total Creatine Kinase Lipase Islet Cell Antibody Anti-CARROL 65 Antibody Insulin Autoantibody 08/30/20 08/30/20 08/30/20 15:34 15:53 15:56 WBC RBC Hgb Hct MCV MCH MCHC RDW Std Deviation RDW Coeff of Quinten Plt Count MPV Immature Gran % (Auto) Neut % (Auto) Lymph % (Auto) Rolette % (Auto) Eos % (Auto) Baso % (Auto) Neut # (Auto) Lymph # (Auto) Rolette # (Auto) Eos # (Auto) Baso # (Auto) Immature Gran # (Auto) Platelet Estimate Sodium Potassium Chloride Carbon Dioxide Anion Gap BUN Creatinine Est Cr Clr Drug Dosing Est GFR ( Amer) Est GFR (Non-Af Amer) BUN/Creatinine Ratio Glucose POC Glucose 93 135 H Calcium Magnesium 2.4 Total Creatine Kinase Lipase Islet Cell Antibody Anti-CARROL 65 Antibody Insulin Autoantibody 08/30/20 08/30/20 08/30/20 16:04 16:16 17:19 WBC RBC Hgb Hct MCV MCH MCHC RDW Std Deviation RDW Coeff of Quinten Plt Count MPV Immature Gran % (Auto) Neut % (Auto) Lymph % (Auto) Rolette % (Auto) Eos % (Auto) Baso % (Auto) Neut # (Auto) Lymph # (Auto) Rolette # (Auto) Eos # (Auto) Baso # (Auto) Immature Gran # (Auto) Platelet Estimate Sodium Potassium Chloride Carbon Dioxide Anion Gap BUN Creatinine Est Cr Clr Drug Dosing Est GFR ( Amer) Est GFR (Non-Af Amer) BUN/Creatinine Ratio Glucose POC Glucose 132 H 152 H 158 H Calcium Magnesium Total Creatine Kinase Lipase Islet Cell Antibody Anti-CARROL 65 Antibody Insulin Autoantibody 08/30/20 08/30/20 08/30/20 18:02 19:05 19:28 WBC RBC Hgb Hct MCV MCH MCHC RDW Std Deviation RDW Coeff of Quinten Plt Count MPV Immature Gran % (Auto) Neut % (Auto) Lymph % (Auto) Rolette % (Auto) Eos % (Auto) Baso % (Auto) Neut # (Auto) Lymph # (Auto) Rolette # (Auto) Eos # (Auto) Baso # (Auto) Immature Gran # (Auto) Platelet Estimate Sodium Potassium Chloride Carbon Dioxide Anion Gap BUN Creatinine Est Cr Clr Drug Dosing Est GFR ( Amer) Est GFR (Non-Af Amer) BUN/Creatinine Ratio Glucose POC Glucose 145 H 115 H 127 H Calcium Magnesium Total Creatine Kinase Lipase Islet Cell Antibody Anti-CARROL 65 Antibody Insulin Autoantibody 08/30/20 08/30/20 08/30/20 20:04 20:47 21:42 WBC RBC Hgb Hct MCV MCH MCHC RDW Std Deviation RDW Coeff of Quinten Plt Count MPV Immature Gran % (Auto) Neut % (Auto) Lymph % (Auto) Rolette % (Auto) Eos % (Auto) Baso % (Auto) Neut # (Auto) Lymph # (Auto) Rolette # (Auto) Eos # (Auto) Baso # (Auto) Immature Gran # (Auto) Platelet Estimate Sodium Potassium Chloride Carbon Dioxide Anion Gap BUN Creatinine Est Cr Clr Drug Dosing Est GFR ( Amer) Est GFR (Non-Af Amer) BUN/Creatinine Ratio Glucose POC Glucose 180 H 167 H Calcium Magnesium 2.2 Total Creatine Kinase Lipase Islet Cell Antibody Anti-CARROL 65 Antibody Insulin Autoantibody 08/30/20 08/31/20 08/31/20 23:55 06:57 06:57 WBC 8.94 RBC 3.71 L Hgb 11.7 L Hct 32.7 L MCV 88.1 MCH 31.5 MCHC 35.8 RDW Std Deviation 42.2 RDW Coeff of Quinten 13.1 Plt Count 192 MPV 9.6 Immature Gran % (Auto) 0.1 Neut % (Auto) 84.7 Lymph % (Auto) 3.8 Rolette % (Auto) 11.3 Eos % (Auto) 0.1 Baso % (Auto) 0.0 Neut # (Auto) 7.57 H Lymph # (Auto) 0.34 L Rolette # (Auto) 1.01 H Eos # (Auto) 0.01 Baso # (Auto) 0.00 Immature Gran # (Auto) 0.01 Platelet Estimate Sodium 136 Potassium 3.6 Chloride 109 H Carbon Dioxide 18 L Anion Gap 10.0 BUN 12 Creatinine 0.66 D Est Cr Clr Drug Dosing 70.8 Est GFR ( Amer) 110.5 Est GFR (Non-Af Amer) 95.3 BUN/Creatinine Ratio 18.9 Glucose 204 H POC Glucose 202 H Calcium 8.4 L Magnesium Total Creatine Kinase 93 Lipase Islet Cell Antibody Anti-CARROL 65 Antibody Insulin Autoantibody 08/31/20 08/31/20 06:57 07:24 WBC RBC Hgb Hct MCV MCH MCHC RDW Std Deviation RDW Coeff of Quinten Plt Count MPV Immature Gran % (Auto) Neut % (Auto) Lymph % (Auto) Rolette % (Auto) Eos % (Auto) Baso % (Auto) Neut # (Auto) Lymph # (Auto) Rolette # (Auto) Eos # (Auto) Baso # (Auto) Immature Gran # (Auto) Platelet Estimate Sodium Potassium Chloride Carbon Dioxide Anion Gap BUN Creatinine Est Cr Clr Drug Dosing Est GFR ( Amer) Est GFR (Non-Af Amer) BUN/Creatinine Ratio Glucose POC Glucose 190 H Calcium Magnesium Total Creatine Kinase Lipase Islet Cell Antibody Pending Anti-CARROL 65 Antibody Pending Insulin Autoantibody Pending PG Care Time/CCT Total # of Minutes Spent Total Time Spent with Patient: Total time spent is greater than 50% in coordination of care (as documented) at patient's floor/unit and/or counseling patient: Coding Level of Care Code 53623 [facility] Lvl 3 Diagnoses DKA (diabetic ketoacidoses) E10.10 Diabetes mellitus complication detail: without coma Diabetes mellitus type: type 1 Low grade fever R50.9 Hypothyroidism E03.9 Hypothyroidism type: acquired Acute kidney injury N17.9 Metabolic acidosis E87.2 Hyperkalemia E87.5 Rhabdomyolysis M62.82 Rhabdomyolysis type: non-traumatic Acute alteration in mental status R41.82 COVID-19 virus antibody negative Z78.9 Mixed hyperlipidemia E78.2 Hypophosphatemia E83.39 Leukocytosis D72.829 Leukocytosis type: unspecified Hyponatremia E87.1 Alcohol use Z72.89 DVT prophylaxis Z29.9 (1) DKA (diabetic ketoacidoses) Diabetes mellitus complication detail: without coma Diabetes mellitus type: type 1 Qualified Code(s): E10.10 - Type 1 diabetes mellitus with ketoacidosis without coma (2) Hypothyroidism Hypothyroidism type: acquired Qualified Code(s): E03.9 - Hypothyroidism, unspecified (3) Leukocytosis Leukocytosis type: unspecified Qualified Code(s): D72.829 - Elevated white blood cell count, unspecified (4) Rhabdomyolysis Rhabdomyolysis type: non-traumatic Qualified Code(s): M62.82 - Rhabdomyolysis
--- NOTE | 2020-08-31 14:07 | Pharmacy Report ---
Pharmacy Glycemic Short Note 2 - Date of Service August 31, 2020 - Glycemic Short BSG Results (Last 24 hours): 08/30/20 08/30/20 08/30/20 15:00 15:17 15:34 Glucose POC Glucose 104 H 118 H 93 08/30/20 08/30/20 08/30/20 15:56 16:04 16:16 Glucose POC Glucose 135 H 132 H 152 H 08/30/20 08/30/20 08/30/20 17:19 18:02 19:05 Glucose POC Glucose 158 H 145 H 115 H 08/30/20 08/30/20 08/30/20 19:28 20:47 21:42 Glucose POC Glucose 127 H 180 H 167 H 08/30/20 08/31/20 08/31/20 23:55 06:57 07:24 Glucose 204 H POC Glucose 202 H 190 H 08/31/20 11:29 Glucose POC Glucose 193 H ASSESSMENT: * Patient received 22 units of basal insulin + insulin drip / Drip was dc'ed yesterday evening * BSGs trending up this AM - plan to increase basal insulin ~25%. Fasting BSG 204 mg/dL * Plan to tighten CF/CR PLAN FOR INPATIENT GLYCEMIC CONTROL: * Basal insulin * Lantus 28 units x 1 today, reevaluate tomorrow AM * Bolus insulin * NovoLog per scale ACHS * CF 30 / CR 12 PLAN FOR DISCHARGE: * tbd
--- NOTE | 2020-08-31 15:30 | XRay Report ---
XR chest 2V PA/lateral HISTORY: low-grade fever, anorexia, recent leukocytosis COMPARISON: Chest 08/21/2020. FINDINGS: The lungs are hyperexpanded with mild apical predominant emphysematous changes. No new foca l lung consolidations to suggest pneumonia. No evidence for pulmonary edema. No pneumothorax. Small b ilateral pleural effusions. IMPRESSION: Small bilateral pleural effusions. ACT 112: Negative or not required by law. Electronically signed by: Ramo Lake M.D. 08/31/2020 3:29 PM
[2020-08-31] MEDS: INSULIN REGULAR 250 UNITS in SODIUM CHLORIDE 0.9% 247.5 ML IV SCH (17:28)
[2020-08-31 19:29] LABS: Appearance Urine Clear (Clear); Bacteria Urine Automated Negative (Negative); Bilirubin Urine Negative (Negative); Blood Urine 1+ (Negative); Color Urine Yellow; Epithelial Cell Urine Auto >30 /lpf (0-5); Glucose Urine UA 3+ (Negative); Ketones Urine 2+ (Negative); Leukocyte Esterase Urine 1+ (Negative); Nitrite Urine Negative (Negative); Protein Urine 1+ (Negative); RBC Urine Automated 0-4 /hpf (0-4); Specific Gravity Urine 1.017 (1.000-1.030); Urobilinogen Urine Negative (Negative); pH Urine 5.5 (4.5-7.5)
[2020-08-31 19:44] LABS: Renal Epithelial Cells Urine 0-5 /lpf (0-5)
[2020-09-01] MEDS ORDERED: INSULIN ASPART 100 UNITS/ML 3 ML PEN SC SCH
[2020-09-01] MEDS: LEVOTHYROXINE SODIUM 125 MCG TABLET PO SCH (03:59)
[2020-09-01 08:36] LABS: Basophils # (auto) 0.01 K/uL (0-0.2); Basophils % (auto) 0.1 %; Eosinophils % (auto) 1.1 %; Hematocrit (blood only) 34.5 % (37-47); Hemoglobin 11.6 g/dL (12.0-16.0); Immature Granulocytes # (auto) 0.02 K/uL (0.00-0.02); Immature Granulocytes % (auto) 0.2 %; Lymphocytes % (auto) 8.5 %; Mean Corpuscular Hemoglobin 29.9 pg (25-34); Mean Corpuscular Hgb Conc 33.6 g/dL (32-36); Mean Corpuscular Volume 88.9 fL (80-100); Mean Platelet Volume 9.5 fL (7.4-10.4); Monocytes # (auto) 0.88 K/uL (0.11-0.59); Monocytes % (auto) 9.3 %; Neutrophils # (auto) 7.63 K/uL (1.4-6.5); Neutrophils % (auto) 80.8 %; Platelet Count 203 K/uL (130-400); RDW Coefficient of Variation 13.5 % (11.5-14.5); RDW Standard Deviation 44.1 fL (36.4-46.3); Red Blood Count 3.88 M/uL (4.2-5.4); White Blood Count 9.44 K/uL (4.8-10.8)
[2020-09-01] MEDS: INSULIN ASPART 100 UNITS/ML 3 ML PEN SC SCH ×4 (09:08→21:13)
[2020-09-01] MEDS: ENOXAPARIN INJ 40 MG/0.4 ML SYR SQ SCH (09:09)
[2020-09-01] MEDS: FOLIC ACID 1 MG TAB PO SCH (09:09)
[2020-09-01 09:10] LABS: BUN Creatinine Ratio 12.8 (10-20); Calcium 8.9 mg/dl (8.5-10.1); Est GFR (African American) 111.6; Est GFR (Non-African American) 96.3; Potassium 3.4 mmol/L (3.5-5.1)
[2020-09-01] MEDS: CEROVITE ADV FORMULA TAB PO SCH (09:10)
[2020-09-01] MEDS: INSULIN GLARGINE SOLOSTAR 100 UNITS/ML 3 ML PEN SC SCH (09:10)
[2020-09-01] MEDS: ATORVASTATIN 20 MG TAB PO SCH (09:10)
[2020-09-01] MEDS: THIAMINE HCL 100 MG TAB PO SCH ×2 (09:10→21:06)
[2020-09-01] MEDS: FAMOTIDINE 20 MG TAB PO SCH ×2 (09:10→21:06)
[2020-09-01 09:22] LABS: Phosphorus 0.7 mg/dl (2.5-4.9)
[2020-09-01] MEDS ORDERED: POTASSIUM PHOS 3 MMOL/1 ML INFUSION IV STA (09:38)
[2020-09-01] MEDS ORDERED: POTASSIUM PHOSPHATE 30 MMOL in SODIUM CHLORIDE 0.9% 500 ML IV ONE (09:45)
--- NOTE | 2020-09-01 10:23 | Pharmacy Report ---
Pharmacy Glycemic Short Note 2 - Date of Service September 01, 2020 - Glycemic Short BSG Results (Last 24 hours): 08/31/20 08/31/20 08/31/20 11:29 16:15 20:10 Glucose POC Glucose 193 H 161 H 186 H 09/01/20 09/01/20 09/01/20 00:00 07:30 08:11 Glucose 169 H POC Glucose 154 H 145 H ASSESSMENT: 09/01 * Patient received total of 39 units of insulin yesterday, of which 28 were basal insulin * Fasting BSG 169 mg/dL - continue with 28 units daily * May need to tighten CR later if diet improves 08/30 * Patient received 22 units of basal insulin + insulin drip / Drip was dc'ed yesterday evening * BSGs trending up this AM - plan to increase basal insulin ~25%. Fasting BSG 204 mg/dL * Plan to tighten CF/CR PLAN FOR INPATIENT GLYCEMIC CONTROL: * Basal insulin * Lantus 28 units daily * Bolus insulin * NovoLog per scale ACHS * CF 30 / CR 12 PLAN FOR DISCHARGE: * A1C of 13.8 % on admission - goal <7% * Patient would benefit from basal/bolus insulin on discharge. Depending on insurance coverage could consider Lantus 25-30 units daily and Novolog 5 units TIDM * DM educator spoke with patient about insulin needs. Patient prefers having set dose of novolog with meals and she will try and balance her carbohydrate consumption. Would recommend addition of sliding scale to outpatient endo provider. Recommend close monitoring outpatient as regimen will likely need titrated. * Will continue to follow and will provide updated discharge recommendations if needed
--- NOTE | 2020-09-01 13:31 | Hospitalist Progress Note ---
Date of Service September 01, 2020 Assessment & Plan (1) DKA (diabetic ketoacidoses): RESOLVED. Transitioned to SC insulin regimen. Lantus 28 units; novolog correction factor 30 with carb ratio 1:10. Control excellent over last 12-24 hours. New diagnosis of type 1 diabetes. Did have evidence of early pre-DM, however, in 12/2019. She has h/o Graves disease at age 18 so her DM is likely autoimmune in nature. Anti-CARROL, anti-insulin, anti-islet cell ab's sent & pending. Refer to endocrine post-d/c. Cause of DKA - no obvious infection found despite markedly elevated WBC count at admission. CXR w/o pneumonia. COVID-19 negative. u/a not suggestive of UTI. Appreciate pharmacy, nutrition, and endoscopy tech consultations. Continue to adjust basal-bolus insulins today with probable d/c tomorrow. (2) Low grade fever: Has not recurred. Cause uncertain. Admission COVID-19 negative. Admission u/a not suggestive of UTI. Blood cx's negative to date. Urine cx negative to date. CXR w/o pneumonia. Patient looks much better today overall. Defer on antibiotics; follow clinically for any worsening. (3) Hypothyroidism: Continue levothyroxine 125 mcg daily. TSH wnl. (4) Acute kidney injury: Creatinine 2.34 at peak. Now 0.6. Resolved. 2nd to severe dehydration in setting of DKA. BMP am. (5) Metabolic acidosis: 2nd DKA - resolved. (6) Hyperkalemia: 2nd to CASTRO and severe DKA. Resolved. (7) Rhabdomyolysis: CK 874 upon admission. Resolved. (8) Acute alteration in mental status: Metabolic encephalopathy in setting of DKA and hyponatremia. RESOLVED. (9) COVID-19 virus antibody negative: noted (10) Mixed hyperlipidemia: LDL 140 Nutrition consultation for dietary counseling Statin started this admission (lipitor 20mg daily) (11) Hypophosphatemia: <1 today. K-phos 30mmol x 1. repeat level in am. (12) Leukocytosis: severe WBC elevation to >30 at time of presentation. WBC count yesterday and today wnl. did receive empiric IV antibiotics in ICU but they were stopped. Low-grade temp yesterday but none since. blood/urine cx's neg. cxr neg. cont to follow off of any abx. (13) Hyponatremia: Multifactorial - "pseudo" component from severe hyperglycemia; CASTRO; volume depletion. Resolved. Stop IV fluids. (14) Alcohol use: 2-3 glasses wine/day up until 1 month ago. Continue MVI, thiamine, folate supplementation. Cont pepcid for GI proph. (15) DVT prophylaxis: lovenox daily cont PT, OT , Saeid, updated at bedside today hopefully d/c tomorrow Admission and Anticipated Discharge Date Admission Date: August 29, 2020 Anticipated date of discharge: 09/02/20 Subjective patient feeling MUCH better today. ate all of dinner last pm and all of breakfast today. minimal abd discomfort high epigastric area but no nausea, no vomiting, no significant reflux symptoms. no cough or dyspnea. ambulating better. no dizziness. confusion resolved. she is feeling more confident about the insulin injections. tele - NSR or minimal sinus tach. Review of Systems Constitutional: + fatigue; no fever, no chills, no body aches and no anorexia Respiratory: no cough, no dyspnea and no dyspnea on exertion Cardiovascular: no chest pain Gastrointestinal: + constipation Physical Exam Constitutional: well developed and well nourished; no acute distress and no altered mental status ENMT: external ear and nose normal, oropharynx normal Respiratory: normal respiratory effort, lungs clear to auscultation Cardiovascular: Rate/Rhythm: regular rhythm and + tachycardic Heart Sounds: normal S1 and normal S2; no murmur Vessels: posterior tibial pulses present and dorsalis pedis pulses present; no JVD Extremities: no edema Gastrointestinal (Abdomen): Inspection/Auscultation: normal bowel sounds; abdomen not distended Percussion/Palpation: abdomen soft; abdomen nontender and no hepatosplenomegaly Skin: no rashes, warm and dry Psychiatric: Orientation: alert, oriented to person, oriented to place and oriented to time Results & Data Results & Data ([facility]) Vital Signs (Past 12 Hours) Vital Signs Temp Pulse Pulse Resp BP Pulse Ox 09/01/20 08:00 100 H 09/01/20 07:38 36.7 C 97 H 16 114/78 98 09/01/20 04:00 36.8 C 99 H 18 110/75 98 Laboratory Results Laboratory Results - last 24 hr 08/31/20 08/31/2020 15:00 15:00 16:15 WBC RBC Hgb Hct MCV MCH MCHC RDW Std Deviation RDW Coeff of Quinten Plt Count MPV Immature Gran % (Auto) Neut % (Auto) Lymph % (Auto) Tate % (Auto) Eos % (Auto) Baso % (Auto) Neut # (Auto) Lymph # (Auto) Tate # (Auto) Eos # (Auto) Baso # (Auto) Immature Gran # (Auto) Sodium Potassium Chloride Carbon Dioxide Anion Gap BUN Creatinine Est Cr Clr Drug Dosing Est GFR ( Amer) Est GFR (Non-Af Amer) BUN/Creatinine Ratio Glucose POC Glucose 161 H Calcium Phosphorus Ferritin 223.4 Procalcitonin 0.24 Urine Color Urine Appearance Urine pH Ur Specific [place] Urine Protein Urine Glucose (UA) Urine Ketones Urine Blood Urine Nitrite Urine Bilirubin Urine Urobilinogen Ur Leukocyte Esterase Urine WBC (Auto) Urine RBC (Auto) U Hyaline Cast (Auto) U Epithel Cells (Auto) Urine Bacteria (Auto) Ur Renal Epithelial Cell Granular Casts Urine Yeast 08/31/20 08/31/20 09/01/20 19:03 20:10 00:00 WBC RBC Hgb Hct MCV MCH MCHC RDW Std Deviation RDW Coeff of Quinten Plt Count MPV Immature Gran % (Auto) Neut % (Auto) Lymph % (Auto) Tate % (Auto) Eos % (Auto) Baso % (Auto) Neut # (Auto) Lymph # (Auto) Tate # (Auto) Eos # (Auto) Baso # (Auto) Immature Gran # (Auto) Sodium Potassium Chloride Carbon Dioxide Anion Gap BUN Creatinine Est Cr Clr Drug Dosing Est GFR ( Amer) Est GFR (Non-Af Amer) BUN/Creatinine Ratio Glucose POC Glucose 186 H 154 H Calcium Phosphorus Ferritin Procalcitonin Urine Color Yellow Urine Appearance Clear Urine pH 5.5 Ur Specific [place] 1.017 Urine Protein 1+ H Urine Glucose (UA) 3+ H Urine Ketones 2+ H Urine Blood 1+ H Urine Nitrite Negative Urine Bilirubin Negative Urine Urobilinogen Negative Ur Leukocyte Esterase 1+ H Urine WBC (Auto) 10-30 H Urine RBC (Auto) 0-4 U Hyaline Cast (Auto) 1-5 U Epithel Cells (Auto) >30 H Urine Bacteria (Auto) Negative Ur Renal Epithelial Cell 0-5 Granular Casts 1-5 H Urine Yeast Not Reportable 09/01/20 09/01/20 09/01/20 07:30 08:11 08:11 WBC 9.44 RBC 3.88 L Hgb 11.6 L Hct 34.5 L MCV 88.9 MCH 29.9 MCHC 33.6 RDW Std Deviation 44.1 RDW Coeff of Quinten 13.5 Plt Count 203 MPV 9.5 Immature Gran % (Auto) 0.2 Neut % (Auto) 80.8 Lymph % (Auto) 8.5 Tate % (Auto) 9.3 Eos % (Auto) 1.1 Baso % (Auto) 0.1 Neut # (Auto) 7.63 H Lymph # (Auto) 0.80 L Tate # (Auto) 0.88 H Eos # (Auto) 0.10 Baso # (Auto) 0.01 Immature Gran # (Auto) 0.02 Sodium 135 L Potassium 3.4 L Chloride 104 Carbon Dioxide 24 Anion Gap 8.0 BUN 8 Creatinine 0.64 Est Cr Clr Drug Dosing 73.0 Est GFR ( Amer) 111.6 Est GFR (Non-Af Amer) 96.3 BUN/Creatinine Ratio 12.8 Glucose 169 H POC Glucose 145 H Calcium 8.9 Phosphorus 0.7 L* Ferritin Procalcitonin Urine Color Urine Appearance Urine pH Ur Specific [place] Urine Protein Urine Glucose (UA) Urine Ketones Urine Blood Urine Nitrite Urine Bilirubin Urine Urobilinogen Ur Leukocyte Esterase Urine WBC (Auto) Urine RBC (Auto) U Hyaline Cast (Auto) U Epithel Cells (Auto) Urine Bacteria (Auto) Ur Renal Epithelial Cell Granular Casts Urine Yeast PG Care Time/CCT Total # of Minutes Spent Total Time Spent with Patient: Total time spent is greater than 50% in coordination of care (as documented) at patient's floor/unit and/or counseling patient: Coding Level of Care Code 75934 Subseq Hosp Care Lvl 2 Diagnoses DKA (diabetic ketoacidoses) E10.10 Diabetes mellitus complication detail: without coma Diabetes mellitus type: type 1 Low grade fever R50.9 Hypothyroidism E03.9 Hypothyroidism type: acquired Acute kidney injury N17.9 Metabolic acidosis E87.2 Hyperkalemia E87.5 Rhabdomyolysis M62.82 Rhabdomyolysis type: non-traumatic Acute alteration in mental status R41.82 COVID-19 virus antibody negative Z78.9 Mixed hyperlipidemia E78.2 Hypophosphatemia E83.39 Leukocytosis D72.829 Leukocytosis type: unspecified Hyponatremia E87.1 Alcohol use Z72.89 DVT prophylaxis Z29.9 (1) DKA (diabetic ketoacidoses) Diabetes mellitus complication detail: without coma Diabetes mellitus type: type 1 Qualified Code(s): E10.10 - Type 1 diabetes mellitus with ketoacidosis without coma (2) Hypothyroidism Hypothyroidism type: acquired Qualified Code(s): E03.9 - Hypothyroidism, unspecified (3) Rhabdomyolysis Rhabdomyolysis type: non-traumatic Qualified Code(s): M62.82 - Rhabdomyolysis (4) Leukocytosis Leukocytosis type: unspecified Qualified Code(s): D72.829 - Elevated white blood cell count, unspecified
[2020-09-01] MEDS: cephALEXin 500 MG CAP PO SCH ×2 (17:10→21:06)
[2020-09-02] MEDS: LEVOTHYROXINE SODIUM 125 MCG TABLET PO SCH (06:13)
[2020-09-02] MEDS: INSULIN ASPART 100 UNITS/ML 3 ML PEN SC SCH ×2 (08:02→12:08)
[2020-09-02 08:08] LABS: BUN Creatinine Ratio 10.4 (10-20); Calcium 8.9 mg/dl (8.5-10.1); Creatinine Clr Calc Pharmacy 75.4 ml/min; Est GFR (African American) 112.8; Est GFR (Non-African American) 97.3; Magnesium 1.9 mg/dl (1.8-2.4); Potassium 3.4 mmol/L (3.5-5.1)
[2020-09-02 08:09] LABS: Phosphorus 1.8 mg/dl (2.5-4.9)
[2020-09-02] MEDS: FAMOTIDINE 20 MG TAB PO SCH (08:45)
[2020-09-02] MEDS: ATORVASTATIN 20 MG TAB PO SCH (08:45)
[2020-09-02] MEDS: cephALEXin 500 MG CAP PO SCH (08:45)
[2020-09-02] MEDS: ENOXAPARIN INJ 40 MG/0.4 ML SYR SQ SCH (08:46)
[2020-09-02] MEDS: THIAMINE HCL 100 MG TAB PO SCH (08:46)
[2020-09-02] MEDS: FOLIC ACID 1 MG TAB PO SCH (08:46)
[2020-09-02] MEDS: CEROVITE ADV FORMULA TAB PO SCH (08:46)
[2020-09-02] MEDS: INSULIN GLARGINE SOLOSTAR 100 UNITS/ML 3 ML PEN SC SCH (08:46)
[2020-09-02] MEDS ORDERED: POTASSIUM CHLORIDE 20 MEQ TABCR PO STA (08:49)
--- NOTE | 2020-09-02 09:21 | Pharmacy Report ---
Pharmacy Glycemic Short Note 2 - Date of Service September 02, 2020 - Glycemic Short BSG Results (Last 24 hours): 09/01/20 09/01/20 09/01/20 11:33 16:24 20:10 Glucose POC Glucose 192 H 175 H 167 H 09/02/20 07:04 Glucose 60 L POC Glucose ASSESSMENT: 09/02 * Patient received total of 36 units of insulin yesterday, of which 28 were basal insulin * Fasting BSG 67 mg/dL - lower, patient has no symptoms of hypoglycemia / eating now; - plan to scale back on Lantus dosing * No change CF/CF 09/01 * Patient received total of 39 units of insulin yesterday, of which 28 were basal insulin * Fasting BSG 169 mg/dL - continue with 28 units daily * May need to tighten CR later if diet improves 08/30 * Patient received 22 units of basal insulin + insulin drip / Drip was dc'ed yesterday evening * BSGs trending up this AM - plan to increase basal insulin ~25%. Fasting BSG 204 mg/dL * Plan to tighten CF/CR PLAN FOR INPATIENT GLYCEMIC CONTROL: * Basal insulin * Lantus 20-24 units daily based upon BSG * Bolus insulin * NovoLog per scale ACHS * CF 30 / CR 10 PLAN FOR DISCHARGE: * A1C of 13.8 % on admission - goal <7% * Patient would benefit from basal/bolus insulin on discharge. Depending on insurance coverage could consider Lantus 20 units daily and Novolog 5 units TIDM * DM educator spoke with patient about insulin needs. Patient prefers having set dose of novolog with meals and she will try and balance her carbohydrate consumption. Would recommend addition of sliding scale to outpatient endo provider. Recommend close monitoring outpatient as regimen will likely need titrated. * Will continue to follow and will provide updated discharge recommendations if needed
[2020-09-02] MEDS: POT PHOSPHATE MONOBASIC W/ SOD TAB PO SCH ×2 (10:06→12:08)
--- NOTE | 2020-09-02 14:39 | Discharge Summary ---
Date of Service date of admission - August 29, 2020 date of discharge - September 02, 2020 Admission HPI Per Admitting Provider The patient is a 60-year-old female with a past medical history including hypothyroidism, hyperglycemia, and anxiety. Her acts as the primary source of HPI and review of systems, as the patient is herself somewhat disoriented and confused. The reports that patient has had 2 to 3 days of decreased oral intake due to indigestion, and today began to have occasional vomiting. He reports that she has also become more thirsty, and has been drinking large volumes of water, but still has not been urinating frequently. He does report that they have eaten out recently, but has no direct awareness of COVID-19 exposures or other exposures to illness. In the emergency department COVID-19 testing was negative. WBC was 36.81 with left shift, platelets 461. Sodium was 113, potassium 6.8, bicarb 5, creatinine 2.34 and glucose 1018. ABG showed a pH of 7.06, PCO2 13, PO2 140, and O2 saturation 98.4 on 2 L nasal cannula O2. The patient was given 3 L of normal saline in the emergency department, and was started on an insulin drip and bicarbonate drip. She was then transferred to the ICU for admission. Principal Diagnosis Diabetic Ketoacidosis 2nd to newly-diagnosed diabetes mellitus Discharge Exam Constitutional well developed and well nourished; no acute distress and no altered mental status ENMT external ear and nose normal, oropharynx normal Respiratory normal respiratory effort, lungs clear to auscultation Cardiovascular Rate/Rhythm: regular rate and regular rhythm Heart Sounds: normal S1 and normal S2; no murmur Vessels: posterior tibial pulses present and dorsalis pedis pulses present; no J VD Extremities: no edema Gastrointestinal (Abdomen) Inspection/Auscultation: normal bowel sounds; abdomen not distended Percussion/Palpation: abdomen soft; abdomen nontender and no hepatosplenomegaly Skin no rashes, warm and dry Psychiatric Orientation: alert, oriented to person, oriented to place and oriented to time Discharge Data Allergies Allergy/AdvReac Type Severity Reaction Status Date / Time No Known Allergies Allergy Verified 09/06/20 11:33 Consultations Automatic I Threading Machine Feeder Diabetes Education Nutrition PT, OT Pharmacy Glycemic Team Procedures Performed Echocardiogram: * normal EF - 60-65% * normal LV wall motion * normal valve function * normal RV function Diabetes Follow up Diabetes Follow-up Needed for HgbA1c >9%,Newly Diagnosed Diabetes Hospital Course (1) DKA (diabetic ketoacidoses): Patient was admitted to the ICU for her severe DKA. She was treated in the customary fashion with copious IVF and IV insulin. pH normalized and anion gap closed with such. She was ultimately transitioned to a subcutaneous insulin regimen from the insulin infusion and resumed on a diet. She was moved to the telemetry unit and while there her insulin regimen of lantus and novolog was adjusted for optimal control. In the 24 hours leading up to discharge her glycemic control was excellent. This is a new diagnosis of probable type 1 diabetes. Did have evidence of early pre-DM, however, in 12/2019 with mildly elevated HbA1C of 6%. HbA1C this admission was 13.8%. She has h/o Graves disease at age 18 so her DM is likely autoimmune in nature. Anti-CARROL, anti-insulin, anti-islet cell antibodies were sent & were pending at discharge. Referral to [facility] endocrinology was made for post-discharge follow-up. Cause of DKA - no obvious infection found despite markedly elevated WBC count at admission. CXR w/o pneumonia. COVID-19 negative. Initial u/a was not suggestive of UTI. She had a low-grade fever later in her stay and u/a & urine cx were repeated. The urine culture did show bacterial growth but I don't believe the UTI was the precipitant of her DKA. (2) Diabetes mellitus type 1: New-onset. HbA1C 13.8%. Received considerable education by nutrition and the life educator. At discharge the following were recommended - * basaglar 20 units qam * novolog 3 units w/ breakfast, 3 units w/ lunch, and 3 units with dinner * we anticipate that with time she will move away from fixed meal-time doses and over to carb counting with carb ratio coverage In the 24 hours leading to discharge her control was very good. She will follow-up with [facility] endocrinology within 1-2 weeks of discharge for ongoing care. Auto-antibodies were dispatched and were pending at discharge. (3) Low grade fever: Admission COVID-19 negative. Admission u/a not suggestive of UTI. Blood cx's negative while hospitalized. CXR w/o pneumonia. A repeat u/a and urine cx later in her stay showed [id number] CFU of e.coli, pansensitive. She will complete a course of cephalexin post-d/c. She was afebrile at discharge. (4) Hypothyroidism: Continue levothyroxine 125 mcg daily. TSH wnl during the visit. (5) Acute kidney injury: Creatinine 2.34 at peak. Now 0.6 at discharge. 2nd to severe dehydration in setting of DKA. (6) Metabolic acidosis: 2nd DKA - resolved. (7) Hyperkalemia: 2nd to CASTRO and severe DKA. Resolved. (8) Rhabdomyolysis: CK 874 upon admission. Resolved. (9) Acute alteration in mental status: Metabolic encephalopathy in setting of DKA and hyponatremia. RESOLVED. (10) COVID-19 virus antibody negative: (11) Mixed hyperlipidemia: LDL 140. Nutrition provided dietary counseling. Statin started this admission -- lipitor 20mg daily. (12) Hypophosphatemia: Received IV and PO replacement. Will complete a 5-day course of oral replacement post-discharge. (13) Leukocytosis: severe WBC elevation to >30 at time of presentation. WBC count normalized without intervention. Later in her stay she developed an isolated low-grade fever. Urine cx ultimately grew e.coli. cxr was negative. blood cultures remained negative. will complete a course of keflex post-discharge. (14) Hyponatremia: Multifactorial - "pseudo" component from severe hyperglycemia; CASTRO; volume depletion. Presenting Na level was 113, improving to 137 at discharge. (15) Alcohol use: 2-3 glasses wine/day up until 1 month prior to admission. Will complete a course of thiamine & folic acid post-d/c. Advised moderation in etoh intake or complete cessation given her new onset T1DM. No evidence of etoh withdrawal while here. Total Time Total Time Spent Total Time Spent (In Minutes): 50 Total Time Includes: Examination of the Patient, Discharge Planning, Medication Reconciliation and Communication With Other Providers Discharge Plan Discharge Items Patient Disposition: Home - Self-Care Reason For Visit: DKA (Diabetic Ketoacidosis) Discharge Diagnosis: 1. DKA - resolved 2. new-onset type 1 diabetes 3. urinary tract infection Activity: Resume your previous activity Non-emergency contact: Primary Care Provider and Specialist Call non-emergency contact if: you have any medication questions and you have a fever Follow-up/Referrals: Esequiel Goncalves MD [Physician] - 09/09/20 12:30 pm (An endocrinology appt. has been made for you with Dr. Goncalves on Sep.09 at 12:30 This is to discuss your new diabetes diagnosis.) Danny Wolfe, [Primary Care Provider] - 09/06/20 11:30 am (see Dr Wolfe within 5-7 days ) Diet: Carb Count or DM1 Addtl Attending Provider Instructions: You presented with diabetic ketoacidosis in the setting of new-onset diabetes. Your diabetes is likely type 1. We have antibody tests that are pending and, if positive, would suggest type 1. Your "DKA" was treated initially in the ICU with IV fluids and IV insulin. You improved over 2-3 days and we gradually transitioned you to subcutaneous insulin. Your blood sugars are nicely controlled at this time. The animal nutrition consultant and natural resource economist saw you and gave you lots of information about diabetes. You will see the endocrinology clinic within a week for ongoing assistance. Finally, your urine culture grew bacteria and thus we are sending you home with antibiotics for urinary tract infection. Recommendations - 1. type 1 diabetes -- * glargine (long-acting insulin) pen -- 20 units EVERY morning * novolog pen -- 3 units with breakfast, 3 units with lunch, and 3 units with dinner * you will likely need ongoing adjustments to your insulin regimen over the next few weeks * check your blood sugars before each meal and at bedtime * please follow any other instructions from our animal nutrition consultant 2. glucagon pen -- this is an emergency pen for severe hypoglycemia (low blood sugar). If your sugar is very low and you are unable to take glucose tablets, drink juice, etc to raise the sugar -- then the glucagon injection can be given by your or other family member to raise your blood sugar. 3. urinary infection -- take cephalexin 500mg twice daily x 6 days; first dose tonight. Eat extra yogurt daily over the next 7 days to help prevent diarrhea. 4. take folic acid and thiamine daily for the next 30 days then stop. 5. take atorvastatin (lipitor) 20mg daily for your cholesterol. Prescription sent in to pharmacy for you. 6. all testing supplies sent to your pharmacy for you (lancets, test strips, etc). 7. follow-up -- see separate section. 8. please see handouts about DKA, the hemoglobin a1c test (your hemoglobin a1c was 13.8%), etc. 9. please continue to socially distance this winter and wear a mask at all times when leaving your home. 10. obtain a yearly eye exam and check your feet every day for skin breakdown, sores, etc. Return to [facility] if -- * you have fever over 100 degrees * you have shortness of breath or chest pain * you have persistently LOW or persistently HIGH blood sugars * you have severe abdominal pain or diarrhea * any other concerns Pending Studies at Discharge: No Stand-Alone Forms: My [facility] [employer] SL, Smoking Cessation Medications and DC Order Prescriptions: New atorvastatin 20 mg Tablet 20 mg PO QAM Qty: 30 RF: 5 thiamine HCl (vitamin B1) [Vitamin B-1] 100 mg Tablet 200 mg PO QAM Qty: 60 RF: 0 folic acid 1 mg Tablet 1 mg PO QAM Qty: 30 RF: 0 Basaglar KwikPen U-100 Insulin 100 unit/mL (3 mL) insulin pen 20 unit subcut QAM Qty: 15 RF: 5 insulin aspart U-100 [Novolog Flexpen U-100 Insulin] 100 unit/mL (3 mL) insulin pen 3 unit subcut AC Qty: 15 RF: 5 (DME) lancets [Accu-Chek Fastclix Lancet Drum] Misc See Rx Instructions .ROUTE .MEDSUPPLY Qty: 100 RF: 11 (DME) Accu-Chek Guide test strips Strip See Rx Instructions .ROUTE .MEDSUPPLY Qty: 100 RF: 11 (DME) pen needle, diabetic [BD [place] 2nd Gen Pen Needle] 32 gauge x 5/32" needle See Rx Instructions .ROUTE .MEDSUPPLY Qty: 100 RF: 11 Continued levothyroxine 125 mcg tablet 125 mcg PO DAILY Qty: 90 RF: 3 acyclovir 400 mg tablet 400 mg PO DAILY PRN (Reason: NEEDED) RF: 0 Discharge Orders: Discharge Order (Routine); Ordered 09/02/20 Ordered By: Davon Casper/Other Patient Handouts: Hypoglycemia (Low Blood Sugar), Managing Diabetes: The A1C Test, Understanding Type 1 Diabetes, Diabetic Ketoacidosis Admission Data Admit Date/Time: 08/29/20 20:35 Attending Provider: Davon Chin Admit Provider: Floyd Bravo Primary Care Provider: Danny Wolfe Other Providers: Floyd Bravo ; Murray Sanchez ; Hector Flores Other Interventions: Discharge Summary Assessment (RN) Last Done: 09/02/20 15:16 Coding Level of Care Code D/C Day Management >30 mins Diagnoses DKA (diabetic ketoacidoses) E10.10 Diabetes mellitus complication detail: without coma Diabetes mellitus type: type 1 Diabetes mellitus type 1 E10.10 Diabetes mellitus complication detail: without coma Diabetes mellitus complication status: with ketoacidosis Low grade fever R50.9 Hypothyroidism E03.9 Hypothyroidism type: acquired Acute kidney injury N17.9 Metabolic acidosis E87.2 Hyperkalemia E87.5 Rhabdomyolysis M62.82 Rhabdomyolysis type: non-traumatic Acute alteration in mental status R41.82 COVID-19 virus antibody negative Z78.9 Mixed hyperlipidemia E78.2 Hypophosphatemia E83.39 Leukocytosis D72.829 Leukocytosis type: unspecified Hyponatremia E87.1 Alcohol use Z72.89
[2020-09-07 16:06] LABS: Glutamic Acid Decarboxylase 65 >250 IU/mL (<5)
== END 2020-09-02 16:32 | disposition home or self-care (01) | DRG 637 ==
LOC: ED 18:08 → 1E 20:35 → SUATTDRO 20:35 → 1E 21:02 → 2S 08-30 12:28